=== PATIENT | female | born 1960 | race Caucasian/White ===

== ENCOUNTER 2017-01-31 14:08 | Inpatient (IN) ==
[2017-01-31] MEDS ORDERED: 0.9 % Sodium Chloride 1,000 ML IVC ONE (14:10)
[2017-01-31] MEDS ORDERED: Ondansetron 4 MG/2 ML VIAL IVP ONE ×2 (14:11→17:28)
--- NOTE | 2017-01-31 14:13 | Emergency Department Note ---
Disposition Clinical Impression: Acute kidney injury Nausea & vomiting Qualifiers: Vomiting type: unspecified Vomiting Intractability: unspecified Qualified Code( s): R11.2 - Nausea with vomiting, unspecified Disposition: Admitted As Inpatient Condition: Fair Time of Disposition: 15:38 General Adult HPI - General Stated complaint: abd pain, nv Time Seen by Provider: 01/31/17 14:09 Source: patient, EMS Mode of arrival: EMS Limitations: no limitations Nursing Notes Reviewed: Yes Vital Signs Reviewed: Yes - History of Present Illness HPI Narrative: 56-year-old who states she's had nausea vomiting for about 2 weeks. Developed some diarrhea today and this morning she suffered a syncopal episode when she got up. States she hasn't felt well for several days. 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 Associated symptoms: Reports: nausea/vomiting, weakness (Generalized) Treatments Prior to Arrival: none - Related Data Home Medications Medication Instructions Recorded Confirmed Atorvastatin [Lipitor] 40 mg PO HS 01/31/17 01/31/17 Clopidogrel [Plavix] 75 mg PO DAILY 01/31/17 01/31/17 Gabapentin [Neurontin] 300 mg PO TID 01/31/17 01/31/17 Insulin ASPART [Novolog Flexpen] 5 unit SQ TIDWM 01/31/17 01/31/17 Insulin Glargine,Hum.rec.anlog 15 unit SQ 01/31/17 01/31/17 [Lantus Solostar] Omeprazole [PriLOSEC] 20 mg PO DAILY 01/31/17 01/31/17 metFORMIN [Glucophage] 1,000 mg PO BID 01/31/17 01/31/17 Previous Rx's Medication Instructions Recorded Lisinopril [Zestril] 20 mg PO DAILY #30 tablet 08/19/16 Allergies Allergy/AdvReac Type Severity Reaction Status Date / Time No Known Allergies Allergy Verified 08/17/16 21:12 All systems ED: reviewed and negative except as stated. Constitutional: Denies: fever, chills, weakness, weight change Eyes: Denies: eye pain, eye discharge, vision change ENT ED: Denies: ear pain, throat pain, dental pain, hearing loss, epistaxis, congestion, dysphagia Cardiovascular: Reports: syncope. Denies: chest pain, palpitations, dyspnea on exertion, edema Respiratory: Denies: cough, dyspnea, wheezes, hemoptysis, stridor Gastrointestinal: Reports: nausea, vomiting, diarrhea. Denies: abdominal pain, constipation, hematemesis, melena, hematochezia Genitourinary: Denies: dysuria, frequency, hematuria, discharge Musculoskeletal: Denies: back pain, neck pain, arthralgia, myalgia Integumentary: Denies: rash, abrasion, lesions Neurological: Denies: headache, weakness, numbness, paresthesias, confusion, abnormal gait, vertigo Psychiatric: Denies: anxiety, depression, suicidal thoughts, homicidal thoughts , auditory hallucinations, visual hallucinations Endocrine: Denies: fatigue Hematological/Lymphatic: Denies: easy bleeding, easy bruising Allergic/Immunologic: Denies: facial swelling, urticaria Past Medical History - Past Medical History Medical history: Reports: hyperlipidemia, hypertension, other Surgical history: Reports: other Psychiatric history: Reports: anxiety, depression - Social History Smoking Status: Current every day smoker Smokeless Tobacco Status: No Alcohol use: Reports: none Drug use: Reports: none Physical Exam - General Limitations: no limitations General appearance: alert, in no apparent distress - Head Head exam: atraumatic, normocephalic, normal inspection - Eye Eye exam: Present: normal appearance, PERRL, EOMI - Expanded Eye Exam Pupils: Left: reactive - ENT ENT exam: normal exam, normal oropharynx, mucous membranes moist - Expanded ENT Exam External ear exam: Present: normal external inspection Mouth exam: Present: normal external inspection Teeth exam: Present: normal inspection Throat exam: Present: normal inspection - Neck Neck exam: Present: normal inspection, full ROM, trachea midline - Chest Chest inspection: Present: normal inspection, symmetric chest wall rise - Respiratory Respiratory exam: Present: normal lung sounds bilaterally - Cardiovascular Cardiovascular exam: Present: regular rate, normal rhythm, normal heart sounds - Abdominal Exam Abdominal exam: Present: soft, Non-Tender. Absent: tenderness, distention, guarding, rebound, rigidity - Extremities Exam Extremities exam: Present: normal inspection, full ROM. Absent: tenderness, pedal edema - Expanded Upper Extremity Exam Shoulder exam: Present: normal inspection, full ROM Arm exam: Present: normal inspection, full ROM Elbow exam: Present: normal inspection, full ROM Forearm/Wrist exam: Present: normal inspection, full ROM Hand exam: Present: normal inspection, full ROM Vascular exam: Normal: capillary refill, radial pulse - Expanded Lower Extremity Exam Hip/Pelvis exam: Present: normal inspection, full ROM Upper leg exam: Present: normal inspection, full ROM Knee exam: Present: normal inspection, full ROM Lower leg exam: Present: normal inspection, full ROM Ankle exam: Present: normal inspection, full ROM Foot/toe exam: Present: normal inspection, full ROM Neurovascular/Tendon exam: Absent: motor deficit, sensory deficit, tendon deficit - Back Exam Back exam: Present: normal inspection, full ROM. Absent: tenderness - Neurological Exam Neurological exam: Present: alert, oriented X3 - Expanded Neurological Exam Patient oriented to: Present: person, place, time Coma Scale Eye Opening: Spontaneous Coma Scale Motor Response: Obeys Commands Coma Scale Verbal Response: Oriented Coma Scale Total: 15 - Psychiatric Psychiatric exam: Present: normal affect, normal mood - Skin Skin exam: Present: warm, dry, intact, normal color Course - Reevaluation(s) Reevaluation #1: Patient with nausea vomiting and acute kidney injury we'll admit for hydration. Time: 15:58 - Consultations Consultation #1: Discussed with Shari Byers nurse practitioner who accepts the patient. Time: 15:57 Vital Signs Temperature 98.1 F 01/31/17 14:09 Pulse Rate 91 01/31/17 14:09 Respiratory Rate 18 01/31/17 14:09 Blood Pressure 117/81 01/31/17 14:09 O2 Sat by Pulse Oximetry 98 01/31/17 14:09 Temperature 98.1 F 01/31/17 14:09 Pulse Rate 85 01/31/17 15:33 Respiratory Rate 18 01/31/17 15:33 Blood Pressure 145/70 01/31/17 15:33 O2 Sat by Pulse Oximetry 99 01/31/17 15:33 Medical Decision Making - Lab Data Lab results reviewed: Yes I reviewed the patient's lab results. Result diagrams: 01/31/17 14:28 01/31/17 14:28 Lab Results 01/31/17 01/31/17 01/31/17 Range/Units 14:28 14:28 14:28 WBC 11.3 H (4.3-11.1) K/mcL RBC 5.78 H (3.82-4.97) M/mcL Hgb 16.0 H (11.5-15.4) g/dL Hct 48.5 H (35.3-44.9) % MCV 83.9 (83.0-100.0) fL MCH 27.7 L (28.0-33.3) pg MCHC 33.0 (31.6-35.5) g/dL RDW 12.8 (11.5-14.5) % Plt Count 275 (140-400) K/mcL MPV 10.3 (9.4-12.4) fL Seg Neutrophils % 44.0 % Band Neutrophils % 36.0 H (0-4) % Lymphocytes % 12.0 % Monocytes % 8.0 % Neutrophils # 9.0 H (1.6-8.9) K/mcL Lymphocytes # 1.4 (0.6-4.6) K/mcL Monocytes # 0.9 (0.0-1.3) K/mcL Platelet Estimate Normal (Normal) PT 13.5 H (9.4-12.1) Seconds INR 1.2 APTT 25.9 L (26.0-36.0) Seconds Sodium 136 (136-145) mEq/L Potassium 4.9 H (3.5-4.5) mEq/L Chloride 103 (98-109) mEq/L Carbon Dioxide 21 (19-29) mEq/L BUN 40 H (7-20) mg/dL Creatinine 2.04 H (0.57-1.11) mg/dL Est GFR ( Amer) 31 L (> 60) Est GFR (Non-Af Amer) 25 L (> 60) BUN/Creatinine Ratio 20 (6-26) Glucose 257 H (70-99) mg/dL Calculated Osmolality 301 H (280-300) Calcium 9.2 (8.6-10.8) mg/dL Troponin I (0-0.03) ng/mL 01/31/17 Range/Units 14:28 WBC (4.3-11.1) K/mcL RBC (3.82-4.97) M/mcL Hgb (11.5-15.4) g/dL Hct (35.3-44.9) % MCV (83.0-100.0) fL MCH (28.0-33.3) pg MCHC (31.6-35.5) g/dL RDW (11.5-14.5) % Plt Count (140-400) K/mcL MPV (9.4-12.4) fL Seg Neutrophils % % Band Neutrophils % (0-4) % Lymphocytes % % Monocytes % % Neutrophils # (1.6-8.9) K/mcL Lymphocytes # (0.6-4.6) K/mcL Monocytes # (0.0-1.3) K/mcL Platelet Estimate (Normal) PT (9.4-12.1) Seconds INR APTT (26.0-36.0) Seconds Sodium (136-145) mEq/L Potassium (3.5-4.5) mEq/L Chloride (98-109) mEq/L Carbon Dioxide (19-29) mEq/L BUN (7-20) mg/dL Creatinine (0.57-1.11) mg/dL Est GFR ( Amer) (> 60) Est GFR (Non-Af Amer) (> 60) BUN/Creatinine Ratio (6-26) Glucose (70-99) mg/dL Calculated Osmolality (280-300) Calcium (8.6-10.8) mg/dL Troponin I 0.00 (0-0.03) ng/mL - Radiology Data Radiology results reviewed: Yes I reviewed the patient's radiology results. Chest X-Ray 01/31/17 14:10 IMPRESSION: No acute cardiopulmonary process. D/ / 01/31/2017 14:36:04 Murphy Cr MD / Mariela Pelayo Interpreting Provider: Murphy Cr MD Head CT 01/31/17 14:10 IMPRESSION: 1. No acute intracranial abnormality. D/ / Santos Kohli MD / Santos Kohli MD Interpreting Provider: Santos Kohli MD - EKG Data EKG #1 EKG attestation: Yes I reviewed and interpreted this EKG. EKG shows normal: sinus rhythm Rate: normal Rhythm: NSR Interpretation: no acute changes
[2017-01-31 14:37] LABS: Hematocrit 48.5 % (35.3-44.9); Mean Corpuscular Hemoglobin 27.7 pg (28.0-33.3); Mean Corpuscular Volume 83.9 fL (83.0-100.0); Mean Platelet Volume 10.3 fL (9.4-12.4); Platelet Count 275 K/mcL (140-400); Red Blood Count 5.78 M/mcL (3.82-4.97); Red Cell Distribution Width 12.8 % (11.5-14.5)
[2017-01-31 14:49] LABS: INR 1.2; Prothrombin Time 13.5 Seconds (9.4-12.1)
[2017-01-31 14:51] LABS: Activated Partial Thrombo Time 25.9 Seconds (26.0-36.0)
[2017-01-31 15:00] LABS: Calcium 9.2 mg/dL (8.6-10.8); Potassium 4.9 mEq/L (3.5-4.5)
[2017-01-31] MEDS ORDERED: *HR* HYDROmorphone (PF) 1 MG/ML SYRINGE IVP ONE ×2 (15:24→18:32)
[2017-01-31 15:53] LABS: Lymphocytes # 1.4 K/mcL (0.6-4.6); Monocytes # 0.9 K/mcL (0.0-1.3)
[2017-01-31 15:54] LABS: Platelet Estimate Normal (Normal)
[2017-01-31] MEDS ORDERED: Naloxone 0.4 MG/ML INJ IVP PRN ×2 (17:41→20:58)
[2017-01-31] MEDS ORDERED: *HR* Dextrose 50 % in Water (Syg) 50 ML SYRINGE IVP PRN (17:55)
[2017-01-31] MEDS ORDERED: D5% in Water 1,000 ML IVC PRN (17:55)
[2017-01-31] MEDS ORDERED: Dextrose Gel 15 GM PO PRN ×2 (17:55)
--- NOTE | 2017-01-31 18:10 | Internal Med History&Physical ---
<MissaelJuan Martínez - Last Filed: 01/31/17 19:40> Date of Encounter: 01/31/17 Time of Encounter: 17:00 Assessment and Plan (1) Intractable cyclical vomiting with nausea Current visit: Yes Status: Acute Assess: Ms. Suero presents with chief complaint of intractable nausea and vomiting. Patient states that she has not felt well for three weeks and has been experiencing nausea, vomiting, and diarrhea on and off for the past three weeks but it has become much worse in the past week. She reports feeling progressively ill and weaker for the past several days. Ms. Suero reports that she got up at approximately 3-4 a.m. this morning to use the restroom and blacked out and fell in the bathroom. She states that her abdominal pain is low and located above the suprapubic region. She states that she is experiencing urinary urgency and frequency and feels as though she cannot empty her bladder. Patient's WBCs currently 11.3 on initial blood draw. Plan: IV fluids 0.9 NS at 100 mL/HR Check magnesium STAT NPO diet with ice chips as tolerated IV Zofran ordered IV phenergan ordered Monitor I&O Monitor daily weight Blood cultures ordered Urine cultures ordered Lactic acid ordered Abdominal/Pelvis CT ordered w/o contrast IV ceftriaxone 1,000 mg daily ordered for infection coverage Follow-up labs ordered Falls precautions/[id number] only Monitor patient and vital signs (2) Acute kidney injury Current visit: Yes Status: Acute Assess: Patient presents with acute kidney injury most likely related to current dehydration status related to nausea, vomiting, diarrhea over the past 3 weeks. Plan: Monitor creatinine and BUN Judicious use of IV fluids Urine culture ordered Ceftriaxone ordered for infection coverage Monitor I&O (3) Dehydration Current visit: Yes Status: Acute Assess: Patient presents with dehydration related to continued nausea, vomiting, diarrhea which is taken place for the past 3 weeks. Plan: IV fluids 0.9 NS at 100 mL/HR ordered Follow-up labs ordered Monitor patient's electrolyte status Monitor I&O (4) Diarrhea in adult patient Current visit: No Status: Acute Assess: Patient presents with continued diarrhea related to current status of abdominal pain, nausea, vomiting, and leukocytosis. Plan: NPO diet with ice chips as tolerated ordered Monitor I&O Fecal occult guaic ordered C. diff ordered based on patient's report of diarrhea for the past three weeks (5) Leukocytosis Current visit: Yes Status: Acute Assess: Patient presents with increased white blood count of 11.3 on initial lab draw and ED. Patient reports symptoms of UTI with urinary urgency, frequency, feeling of being unable to empty bladder completely, and abdominal pain located in suprapubic area. Patient also presents with intractable nausea and vomiting. Plan: Urine culture ordered Blood cultures ordered IV ceftriaxone ordered 1,000 mg daily for infection coverage Follow-up labs ordered Qualifiers: Leukocytosis type: unspecified Qualified Code(s): D72.829 - Elevated white blood cell count, unspecified (6) Diabetes Current visit: Yes Status: Chronic Assess: Patient presents with history of chronic diabetes. Blood glucose on initial lab drawn ED was 257 mg/dL. 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 Plan: Heparin contraindicated due to recent stroke history and syncope/fall today SCDs ordered for bilateral lower extremities Internal Medicine - H&P: HPI Chief complaint: Intractable nausea and vomiting Admitted From: Emergency Dept Plans for Post Hospital Care: Home History of present illness: Ms. Suero is a 56 year old female who presents from the ED with chief complaint of intractable nausea and vomiting. Patient states that she has not felt well for three weeks and has been experiencing nausea, vomiting, and diarrhea on and off for the past three weeks but it has become much worse in the past week. She reports feeling progressively ill and weaker for the past several days. Ms. Suero reports that she got up at approximately 3-4 a.m. this morning to use the restroom and blacked out and fell in the bathroom. She states that her abdominal pain is low and located above the suprapubic region. She states that she is experiencing urinary urgency and frequency and feels as though she cannot empty her bladder. She also reports that similar symptoms occurred in July 2016 when she experienced a stroke. She states she remains off-balance due to the stroke. Ms. Suero also states that she was recently diagnosed with a hole in her heart at [facility] early this month. Medical records will be requisitioned. Patient to be admitted as inpatient status due to leukocytosis, high risk for CVA, intractable nausea and vomiting, and syncopal episodes. Patient to be placed on IV fluids for dehydration and IV ceftriaxone for infection coverage. Orders to be placed for blood cultures, urine cultures, CT of the abdomen and pelvis w/o contrast, and NPO diet with ice chips as tolerated. Follow up labs ordered and patient to be monitored closely. Will consider repeat MRI of the brain if syncope/dizziness does not resolve with other treatments. Patient is falls precautions and up-with -assist only due to syncope. Past Med Surg Social Fam HX - Past Medical History Medical history: CVA, diabetes, hyperlipidemia, hypertension, other (Diagnosed with hole in the heart by [facility] in January 2017 - records ordered) Psychiatric history: no psych history - Past Surgical History Surgical History: hysterectomy, other (Part of colon removed due to diverticulosis. Colostomy reversed.) - Social History Smoking Status: Current every day smoker Packs per day: 1 PPD Smokeless Tobacco Status: No Alcohol use: none Drug use: none Occupational status: unemployed Current living situation: Home, With Family Activity Level: Independent ambulation Recent Out of Country Travel Within the Last 8 Weeks: No Exposure or Possible Exposure to Illness During Travel: No - Family History Mother Race: Family Member Ethnicity: Non- Living Status: Still Living Hx Family Endocrine Disorder: Yes (DM) Hx Family Neurologic Disorders: Yes (Alzheimer's disease) Father Race: Family Member Ethnicity: Non- Living Status: Age at : 42 Cause of : [place] Hx Family Cardiac Disorders: Yes ([place]) Brother Race: Family Member Ethnicity: Non- Living Status: Age at : 32 Cause of : [place] Hx Family Cardiac Disorders: Yes ([place]) Sister Race: Family Member Ethnicity: Non- Living Status: Still Living Hx Family Medical Disorders: No Internal Medicine - H&P: Meds Lisinopril [Zestril] 20 mg PO DAILY #30 tablet 08/19/16 [Rx] Atorvastatin [Lipitor] 40 mg PO HS 01/31/17 [History] Clopidogrel [Plavix] 75 mg PO DAILY 01/31/17 [History] Gabapentin [Neurontin] 300 mg PO TID 01/31/17 [History] Insulin ASPART [Novolog Flexpen] 5 unit SQ TIDWM 01/31/17 [History] Insulin Glargine,Hum.rec.anlog [Lantus Solostar] 15 unit SQ HS 01/31/17 [History ] Omeprazole [PriLOSEC] 20 mg PO DAILY 01/31/17 [History] metFORMIN [Glucophage] 1,000 mg PO BID 01/31/17 [History] Allergies No Known Allergies Allergy (Verified 08/17/16 21:12) All Systems PM: A 10-system review of systems was performed and is negative for pertinent findings except as documented above in the HPI. - Constitutional Constitutional: as per HPI, anorexia, falls, weakness, weight loss - EENT Eyes: no change in vision, no discharge, no pain, no photophobia Ears: no ear discharge, no ear pain, no tinnitus Nose, mouth and throat: no dysphagia, no nasal discharge, no neck pain, no sore throat - Breasts Breasts: as per HPI - Cardiovascular Cardiovascular ROS IM: no chest pain, no diaphoresis, no dyspnea, no lightheadedness, no palpitations, no syncope - Respiratory Respiratory: no cough, no dyspnea, no wheezing, no excessive phlegm production - Gastrointestinal Gastrointestinal: as per HPI, abdominal pain, diarrhea, nausea, vomiting - Genitourinary Genitourinary: as per HPI, difficulty urinating, urinary frequency, urinary urgency, no change in urinary stream, no dysuria, no flank pain, no hematuria Menstruation: as per HPI, post hysterectomy - Musculoskeletal Musculoskeletal ROS IM: no numbness, no tingling - Integumentary Integumentary IM: no rash, no unusual bruising - Neurological Neurological ROS: as per HPI, dizziness, weakness, no confusion, no convulsions , no focal weakness, no numbness, no tingling, no tremor(s) - Psychiatric Psychiatric: as per HPI - Endocrine Endocrine IM: as per HPI - Hematologic/Lymphatic Hematologic/Lymphatic: no easy bruising - Allergic/Immunologic Allergic/Immunologic: as per HPI - Constitutional Vitals: Temp Pulse Resp BP Pulse Ox 98.1 F 81 18 101/61 94 01/31/17 14:09 01/31/17 16:53 01/31/17 16:53 01/31/17 16:53 01/31/17 16:53 General appearance: Present: cooperative, A&O X 3, severe distress, answers questions appropriately - Head Head exam: Present: atraumatic, normocephalic - Eye Eye exam: Present: PERRL, conjuntiva pink, sclera anicteric Pupils: Present: PERRL - ENT ENT exam: Present: normal exam, normal external ear exam - Neck Neck exam general surgery: Present: supple, trachea midline. Absent: lymphadenopathy - Respiratory Respiratory exam: Present: CTAB. Absent: accessory muscle use, rales, rhonchi, wheezes - Cardiovascular Cardiovascular exam: Present: RRR, +S1, +S2. Absent: diastolic murmur, gallop, rubs, systolic murmur - GI/Abdominal GI/Abdominal exam: Present: diminished bowel sounds, guarding, soft, tenderness - Rectal Rectal exam: Present: deferred - Additional comments: exam deferred. - Extremities Exam Extremities exam: Present: warm, radial pulses palpable and symetrical. Absent : calf tenderness, cyanotic, pedal edema - Back Exam Back exam: Present: normal inspection - Neurological Exam Neurological exam: Present: CN II-XII intact, oriented X3, no focal deficits. Absent: pronater drift, facial droop, speech deficit - Psychiatric Psychiatric exam: Present: anxious (Due to severe pain and nausea) - Skin Skin exam: Present: dry, intact Internal Med - H&P Results - Labs CBC & Chem 7: 01/31/17 14:28 01/31/17 14:28 - EKG Data EKG shows normal: sinus rhythm Rate: normal - EKG Data Prior EKG available for review: yes When compared to previous EKG: there is no significant change Interpretation IM: normal EKG EKG comments: 01/31/17 19:03 EKG dated 09/07/16 shows sinus rhythm within normal limits. EKG dated 01/31/17 shows sinus rhythm, normal ECG. - Diagnostic Studies Chest x-ray Additional comments: Impressions Chest X-Ray 01/31/17 14:10 IMPRESSION: No acute cardiopulmonary process. D/ / 01/31/2017 14:36:04 Murphy Cr MD / Mariela Pelayo Interpreting Provider: Murphy Cr MD CT scan - head Additional comments: Impressions Head CT 01/31/17 14:10 IMPRESSION: 1. No acute intracranial abnormality. D/ / Santos Kohli MD / Santos Kohli MD Interpreting Provider: Santos Kohli MD <Mari Zhang E - Last Filed: 02/01/17 07:51> Date of Encounter: 02/01/17 Internal Medicine - H&P: HPI History of present illness: Ms. Suero is a 56 year old female All Systems PM: A 10-system review of systems was performed and is negative for pertinent findings except as documented above in the HPI. - Constitutional Vitals: Temp Pulse Resp BP Pulse Ox 97.8 F 69 14 119/73 97 02/01/17 03:25 02/01/17 03:25 02/01/17 03:25 02/01/17 03:25 02/01/17 03:25 Internal Med - H&P Results - Labs CBC & Chem 7: 02/01/17 03:50 02/01/17 03:50 Labs: Short CBC 02/01/17 Range/Units 03:50 WBC 9.2 (4.3-11.1) K/mcL Hgb 14.2 D (11.5-15.4) g/dL Hct 43.3 (35.3-44.9) % Plt Count 265 (140-400) K/mcL Neutrophils # 5.4 (1.6-8.9) K/mcL BMP 02/01/17 03:50 Sodium 138 Potassium 4.0 Chloride 108 Carbon Dioxide 22 BUN 30 H D Creatinine 0.95 D Glucose 100 H Calcium 8.4 L Liver Function 02/01/17 Range/Units 03:50 Total Bilirubin 0.2 (0.2-1.2) mg/dL AST 7 (5-34) Units/L ALT < 6 (0-55) Units/L Alkaline Phosphatase 82 (38-126) Units/L Albumin 3.0 L (3.5-5.0) g/dL Urine 01/31/17 Range/Units 23:20 Urine Color Yellow (Yellow) Urine Clarity Cloudy A (Clear) Urine pH 5.5 (5.0-8.0) pH Units Ur Specific Holley 1.023 (1.010-1.025) Urine Protein Trace (Neg-Trace) mg/dL Urine Glucose (UA) Normal (Normal) mg/dL - Impressions ITS Impressions Abdomen/Pelvis CT 01/31/17 18:26 IMPRESSION: 1. Circumferential wall thickening of the distal ileum with adjacent stranding compatible with enteritis. Infectious and inflammatory etiologies are in the differential. 2. No evidence of acute appendicitis. 3. Status post hysterectomy. D/ / Dmitri Campoverde MD / Dmitri Campoverde MD Interpreting Provider: Dmitri Campoverde MD - Attending Attestation This is a late entry for a patient I examined and reviewed laboratory, imaging and all diagnostic data on 01/31/17. My medical decision-making was reviewed with Juan Canas - BUILDING CONSTRUCTION IRONWORKER. I agreed with the documented findings, disposition and treatment plan as described above. History and exam by me shows: patient with nausea, vomiting, suprapubic pain, frequency and dysuria since the morning. She reports an episode of nausea and vomiting in July but left AMA and a few weeks later she had an outpatient brain MRI showing subacute stroke in the left cerebellar infarction with associated petechial hemorrhage. She reports this episode of nausea and vomiting is different but she is concerned that she might be having another stroke. CT head was negative. gait not asssessed due to severe nausea and vomiting. she denies any focal deficit. Her symptoms are concerning for UTI, will start IV Ceftriaxone, check UA/UCx, CT abdomen/pelvis, lipase, amylase and LFTs.
[2017-01-31] MEDS ORDERED: *HR* HYDROmorphone (PF) 1 MG/ML SYRINGE ONE (18:40)
[2017-01-31 18:52] LABS: Magnesium 1.5 mg/dL (1.6-2.6)
[2017-01-31 18:53] LABS: Hemoglobin A1C 7.6 %
[2017-01-31] MEDS ORDERED: Ketorolac 30 MG/ML VIAL IVP PRN (20:58)
[2017-01-31] MEDS: *HR* HYDROmorphone (PF) 1 MG/ML SYRINGE IVP PRN (21:00)
[2017-01-31] MEDS: 0.9 % Sodium Chloride 1,000 ML IVC SCH (21:05)
[2017-01-31] MEDS: *HR* Promethazine 25 MG/ML VIAL IVP PRN (21:09)
[2017-01-31] MEDS: Insulin DETEMIR 100 UNIT/ML X5UNITS SQ SCH (21:15)
[2017-01-31] MEDS: Insulin LISPRO 300 UNITS/3 ML VIAL SQ SCH (21:16)
[2017-01-31] MEDS ORDERED: *HR* Heparin 5,000 UNIT/ML VIAL SQ SCH (22:00)
[2017-01-31] MEDS ORDERED: Magnesium Sulfate 1 GM in D5% in Water 100 ML IVPB ONE (22:11)
[2017-01-31 23:25] LABS: Bilirubin,Urine Negative (Negative); Blood,Urine Negative (Negative); Clarity,Urine Cloudy (Clear); Color,Urine Yellow (Yellow); Glucose,Urine (UA) Normal (Normal); Ketones,Urine Negative (Negative); Leukocyte Esterase,Urine Small (Negative); Nitrite,Urine Negative (Negative); PH,Urine 5.5 pH Units (5.0-8.0); Protein,Urine Trace mg/dL (Neg-Trace); Specific Gravity,Urine 1.023 (1.010-1.025); Urobilinogen,Urine Normal (Normal)
[2017-01-31 23:27] LABS: Bacteria,Urine Moderate per hpf (None-Few); RBC,Urine 15-30 per hpf (0-3); Squamous Epithelial Cell,Urine Many per lpf (None-Few)
[2017-01-31 23:43] LABS: Hyaline Casts,Urine Few per lpf (None-Few)
[2017-02-01] MEDS: *HR* Promethazine 25 MG/ML VIAL IVP PRN ×6 (01:00→22:52)
[2017-02-01] MEDS: *HR* HYDROmorphone (PF) 1 MG/ML SYRINGE IVP PRN ×6 (01:02→22:49)
[2017-02-01] MEDS: MetroNIDAZOLE 500 MG/100 ML 500 MG/100 ML BAG IVPB SCH ×2 (01:43→09:42)
[2017-02-01 05:00] LABS: Basophils % 0.3 %; Eosinophils # 0.6 K/mcL (0.0-0.6); Eosinophils % 6.9 %; Hematocrit 43.3 % (35.3-44.9); Immature Granulocytes % 0.5 % (0-4); Lymphocytes % 21.5 %; Mean Corpuscular HGB Conc 32.8 g/dL (31.6-35.5); Mean Corpuscular Hemoglobin 28.1 pg (28.0-33.3); Mean Corpuscular Volume 85.6 fL (83.0-100.0); Mean Platelet Volume 10.4 fL (9.4-12.4); Monocytes # 1.1 K/mcL (0.0-1.3); Monocytes % 12.3 %; Neutrophils # 5.4 K/mcL (1.6-8.9); Platelet Count 265 K/mcL (140-400); Red Blood Count 5.06 M/mcL (3.82-4.97); Segmented Neutrophils % 58.5 %
[2017-02-01 05:09] LABS: Hemoglobin 14.2 g/dL (11.5-15.4)
[2017-02-01 05:17] LABS: Albumin/Globulin Ratio 0.9 (1.1-2.2); Alkaline Phosphatase 82 Units/L (38-126); Aspartate Amino Transferase 7 Units/L (5-34); BUN/Creatinine Ratio 32 (6-26); Bilirubin,Total 0.2 mg/dL (0.2-1.2); Blood Urea Nitrogen 30 mg/dL (7-20); Calcium 8.4 mg/dL (8.6-10.8); Carbon Dioxide 22 mEq/L (19-29); Chloride 108 mEq/L (98-109); Cholesterol 138 mg/dL (< 200); Globulin 3.2 g/dL (2.4-3.5); Glucose 100 mg/dL (70-99); HDL Cholesterol 23 mg/dL (40-59); LDL Cholesterol,Calculated 83 mg/dL (0-99); Magnesium 1.9 mg/dL (1.6-2.6); Osmolality,Calculated 292 (280-300); Phosphorous 2.6 mg/dL (2.3-4.7); Sodium 138 mEq/L (136-145); Total Protein 6.2 g/dL (6.0-8.3); Triglycerides 162 mg/dL (< 150); eGFR For African Americans > 60 (> 60); eGFR For Non-African Americans > 60 (> 60)
[2017-02-01 05:21] LABS: Alanine Aminotransferase < 6 Units/L (0-55)
[2017-02-01 05:29] LABS: Reactive Lymphocytes Present (Not Present)
[2017-02-01 05:30] LABS: Platelet Estimate Normal (Normal)
[2017-02-01] MEDS: 0.9 % Sodium Chloride 1,000 ML IVC SCH ×2 (06:34→17:09)
[2017-02-01] MEDS ORDERED: Insulin LISPRO 300 UNITS/3 ML VIAL SQ SCH (08:00)
[2017-02-01] MEDS: Insulin LISPRO 300 UNITS/3 ML VIAL SQ SCH ×4 (08:44→21:45)
--- NOTE | 2017-02-01 09:22 | Electrocardiograph Report ---
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
[2017-02-01] MEDS: Pantoprazole 40 MG VIAL IVP SCH (09:42)
--- NOTE | 2017-02-01 10:21 | Internal Med Progress Note ---
<Maryjo Pope - Last Filed: 02/01/17 14:54> Date of Encounter: 02/01/17 Time of Encounter: 09:00 - Assessment and plan (1) Clostridium difficile enterocolitis Current Visit: Yes Status: Acute Assessment and plan: Patient presented with signs and symptoms of enterocolitis: Nausea, vomiting, abdominal pain, explosive watery diarrhea for over 3 weeks. Patient subsequently developed dehydration due to volume loss from vomiting and diarrhea. CT scan of the abdomen and pelvis demonstrated circumferential wall thickening of the distal ileum that correlated to clinical findings of enterocolitis. Abdomen/Pelvis CT 01/31/17 18:26 IMPRESSION: 1. Circumferential wall thickening of the distal ileum with adjacent stranding compatible with enteritis. Infectious and inflammatory etiologies are in the differential. 2. No evidence of acute appendicitis. 3. Status post hysterectomy. -Leukocytosis with left shift and bandemia: WBCs 11.3, bands 36.0, neutrophils 9.0, reactive lymphocytes. Resolved: WBCs 9.2, no bands, neutrophils 5.4. We will continue to monitor daily labs in association with clinical progress. -Stool occult blood was positive. This is likely related to Clostridium difficile enterocolitis and inflammatory bowel wall changes. We will follow hemoglobin and hematocrit -Stool Clostridium difficile toxin was positive. Patient has never had C. difficile in the past. Community-acquired Clostridium difficile. Patient has criteria for severe enterocolitis that includes: End organ damage: Elevated BUN and creatinine above patient's baseline; Serum creatinine greater than 1.5 Serum albumin below 3 g/Ruth Ann -Will treat severe enterocolitis with oral vancomycin starting dose 125 mg QID. Stop date for vancomycin 02/11/17 for a total of 10 days oral vancomycin therapy. We will monitor for patient's response if she fails oral vancomycin at low dose will consider increasing to 500 mg 4 times a day if indicated. May consider adding lactobacillus acidophilus daily for discharge medication upon completion of oral vancomycin therapy to replenish natural bowel blas in order aid in prevention of recurrence. If patient remains stable we will likely discharge tomorrow on oral vancomycin as above. -Dehydration: IV fluid resuscitation. Continue normal saline at 100 miles an hour. -Nausea and vomiting: Anti-emetics Zofran and Phenergan when necessary -Advance to liquid diet if patient tolerates well we will continue to advance diet tomorrow. -Supportive care and pain control Urine culture pending Blood cultures pending (2) Diabetes Current Visit: Yes Status: Chronic Assessment and plan: Patient has a long history of type 2 diabetes. Discontinue oral hypoglycemics Glucose checks per protocol Subcutaneous insulin: Insulin low-dose sliding scale Will advance to diabetic diet as patient tolerates Qualifiers: Diabetes mellitus type: type 2 Diabetes mellitus complication status: without complication Diabetes mellitus extermination supervisor insulin use: unspecified intermediate insulin use status Qualified Code(s): E11.9 - Type 2 diabetes mellitus without complications (3) Hypertension Current Visit: Yes Status: Chronic Assessment and plan: Patient is currently well controlled. Vitals stable. Hold oral antihypertensives. Qualifiers: Hypertension type: essential hypertension Qualified Code(s): I10 - Essential (primary) hypertension (4) Hyperlipemia, mixed Current Visit: Yes Status: Acute Assessment and plan: Continue Lipitor (5) DVT prophylaxis Current Visit: Yes Status: Acute Assessment and plan: EPCDs to bilateral lower extremities for DVT prophylaxis Heparin 5,000 units SQ twice daily for DVT prophylaxis - Subjective Interval history: Patient was seen and examined. Events overnight include persistent explosive diarrhea described as watery with mozzarella cheese specks in it. "Never had diarrhea quite like this ". Patient's nausea and vomiting have resolved however she continues to have diarrhea and diffuse abdominal pain more pronounced suprapubically and the right lower quadrant associated symptoms include urgency and frequency of urination. Patient denies sick contacts, recent antibiotic use or history of Clostridium difficile. Vitals stable. Afebrile. Will advance patient's diet to liquids and see how she tolerates. - Constitutional Vitals: Temp Pulse Resp BP Pulse Ox 97.8 F 72 13 136/77 95 02/01/17 08:23 02/01/17 08:23 02/01/17 08:23 02/01/17 08:23 02/01/17 08:23 General appearance: Present: cooperative, A&O X 3, severe distress, answers questions appropriately Exam: General: Cooperative, pleasant, mild distress, alert and oriented 3, answers questions appropriately, pungent fecal odor in the room HEENT: Normocephalic, atraumatic, neck supple, trachea midline, Conjunctiva pink , sclera anicteric, EOMI, PERRL, oral mucosa dry, no orophargeal erythema or exudates Respiratory: No accessory muscle usage, clear to auscultation bilaterally, no wheezes/rhonchi/rales appreciated Cardiovascular: Regular rate and rhythm, S1 and S2 present, no murmurs/rubs/ gallops/clicks appreciated GI/abdominal: Nondistended, diffusely tender on palpation specifically over her suprapubic and right lower quadrant, soft, normal bowel sounds, no peritoneal signs Extremities: No calf tenderness, noncyanotic, no pedal edema appreciated, warm, lower extremity pulses palpable and symmetrical Neurological: Alert and oriented 3, no facial droop, no focal deficits Skin: Dry, intact, normal color Internal Medicine: Result - Labs CBC & Chem 7: 02/01/17 03:50 02/01/17 03:50 Labs: Short CBC 02/01/17 Range/Units 03:50 WBC 9.2 (4.3-11.1) K/mcL Hgb 14.2 D (11.5-15.4) g/dL Hct 43.3 (35.3-44.9) % Plt Count 265 (140-400) K/mcL Neutrophils # 5.4 (1.6-8.9) K/mcL BMP 02/01/17 03:50 Sodium 138 Potassium 4.0 Chloride 108 Carbon Dioxide 22 BUN 30 H D Creatinine 0.95 D Glucose 100 H Calcium 8.4 L Liver Function 02/01/17 Range/Units 03:50 Total Bilirubin 0.2 (0.2-1.2) mg/dL AST 7 (5-34) Units/L ALT < 6 (0-55) Units/L Alkaline Phosphatase 82 (38-126) Units/L Albumin 3.0 L (3.5-5.0) g/dL Urine 01/31/17 Range/Units 23:20 Urine Color Yellow (Yellow) Urine Clarity Cloudy A (Clear) Urine pH 5.5 (5.0-8.0) pH Units Ur Specific [place] 1.023 (1.010-1.025) Urine Protein Trace (Neg-Trace) mg/dL Urine Glucose (UA) Normal (Normal) mg/dL - ABG Interpretation ABG results: PT/INR, D-dimer PT 13.5 Seconds (9.4-12.1) H 01/31/17 14:28 D-Dimer 1561 ng/mLFEU (0-500) H 01/31/17 18:21 - Impressions Impressions Abdomen/Pelvis CT 01/31/17 18:26 IMPRESSION: 1. Circumferential wall thickening of the distal ileum with adjacent stranding compatible with enteritis. Infectious and inflammatory etiologies are in the differential. 2. No evidence of acute appendicitis. 3. Status post hysterectomy. D/ / Dmitri Campoverde MD / Dmitri Campoverde MD Interpreting Provider: Dmitri Campoverde MD Consult Discharge Plan - Plan Additional Instructions: After you complete your full course of oral vancomycin you may begin taking lactobacillus daily. Referrals: Cecile Kim MD [Primary Care Provider] - <Sarthak Amaya - Last Filed: 02/01/17 16:07> Date of Encounter: 02/01/17 - Constitutional Vitals: Temp Pulse Resp BP Pulse Ox 97.8 F 73 18 112/72 96 02/01/17 15:33 02/01/17 15:33 02/01/17 15:33 02/01/17 15:33 02/01/17 15:33 Internal Medicine: Result - Labs CBC & Chem 7: 02/01/17 03:50 02/01/17 03:50 - ABG Interpretation ABG results: PT/INR, D-dimer PT 13.5 Seconds (9.4-12.1) H 01/31/17 14:28 D-Dimer 1561 ng/mLFEU (0-500) H 01/31/17 18:21 - Attending Attestation I examined this patient and my medical decision-making was reviewed with the STEAM AND GAS TURBINE ASSEMBLER/PA/Advanced Practice Nurse/Resident Physician. I agree with the documented findings, disposition and treatment plan as described except to the extent set forth below. Severe C diff collitis. Continue with alma adams, Agree with DR. Pope.
[2017-02-01] MEDS ORDERED: Vancomycin Oral Soln 250 MG/2.5 ML UDC PO SCH (13:00)
[2017-02-01] MEDS: Gabapentin 300 MG CAPSULE PO SCH ×2 (17:09→21:46)
[2017-02-01] MEDS: *HR* Heparin 5,000 UNIT/ML VIAL SQ SCH (17:10)
[2017-02-01] MEDS: Ondansetron 4 MG/2 ML VIAL IVP PRN (17:10)
[2017-02-01] MEDS: Insulin DETEMIR 100 UNIT/ML X5UNITS SQ SCH (21:45)
[2017-02-01] MEDS: Vancomycin Oral Soln 250 MG/2.5 ML UDC PO SCH (21:46)
[2017-02-02] MEDS: Ondansetron 4 MG/2 ML VIAL IVP PRN (02:32)
[2017-02-02] MEDS: *HR* HYDROmorphone (PF) 1 MG/ML SYRINGE IVP PRN ×4 (03:32→21:41)
[2017-02-02] MEDS: 0.9 % Sodium Chloride 1,000 ML IVC SCH ×2 (03:33→13:42)
[2017-02-02] MEDS: *HR* Heparin 5,000 UNIT/ML VIAL SQ SCH ×2 (06:44→18:43)
[2017-02-02] MEDS: Insulin LISPRO 300 UNITS/3 ML VIAL SQ SCH ×4 (07:27→21:43)
[2017-02-02] MEDS: Pantoprazole 40 MG VIAL IVP SCH (07:37)
[2017-02-02] MEDS: Gabapentin 300 MG CAPSULE PO SCH ×3 (07:37→21:43)
[2017-02-02] MEDS: *HR* Promethazine 25 MG/ML VIAL IVP PRN ×3 (07:38→21:41)
--- NOTE | 2017-02-02 10:55 | Internal Med Progress Note ---
<Maryjo Pope - Last Filed: 02/02/17 18:25> Date of Encounter: 02/02/17 Time of Encounter: 09:00 - Assessment and plan (1) Clostridium difficile enterocolitis Current Visit: Yes Status: Acute Assessment and plan: Patient presented with signs and symptoms of enterocolitis: Nausea, vomiting, abdominal pain, explosive watery diarrhea for over 3 weeks. Patient subsequently developed dehydration due to volume loss from vomiting and diarrhea. CT scan of the abdomen and pelvis demonstrated circumferential wall thickening of the distal ileum that correlated to clinical findings of enterocolitis. Abdomen/Pelvis CT 01/31/17 18:26 IMPRESSION: 1. Circumferential wall thickening of the distal ileum with adjacent stranding compatible with enteritis. Infectious and inflammatory etiologies are in the differential. 2. No evidence of acute appendicitis. 3. Status post hysterectomy. -Leukocytosis with left shift and bandemia: WBCs 11.3, bands 36.0, neutrophils 9.0, reactive lymphocytes. Resolved: WBCs 9.2, no bands, neutrophils 5.4. We will continue to monitor daily labs in association with clinical progress. -Stool occult blood was positive. This is likely related to Clostridium difficile enterocolitis and inflammatory bowel wall changes. We will follow hemoglobin and hematocrit -Stool Clostridium difficile toxin was positive. Patient has never had C. difficile in the past. Community-acquired Clostridium difficile. Patient has criteria for severe enterocolitis that includes: End organ damage: Elevated BUN and creatinine above patient's baseline; Serum creatinine greater than 1.5 Serum albumin below 3 g/Ruth Ann -Will treat severe enterocolitis with oral vancomycin starting dose 125 mg QID. Stop date for vancomycin 02/11/17 for a total of 10 days oral vancomycin therapy. We will monitor for patient's response if she fails oral vancomycin at low dose will consider increasing to 500 mg 4 times a day if indicated. May consider adding lactobacillus acidophilus daily for discharge medication upon completion of oral vancomycin therapy to replenish natural bowel blas in order aid in prevention of recurrence. If patient remains stable we will likely discharge tomorrow on oral vancomycin as above. -Dehydration: IV fluid resuscitation. Continue normal saline at 100 miles an hour. -Nausea and vomiting: Anti-emetics Zofran and Phenergan when necessary -Advance to regular diet -Supportive care and pain control Urine culture pending negative preliminary Blood cultures pending negative preliminary If patient continues to tolerate diet well we will plan to discharge based on clinical response on home on oral vancomycin therapy with a stop date of . (2) Diabetes Current Visit: Yes Status: Chronic Assessment and plan: Patient has a long history of type 2 diabetes. Discontinue oral hypoglycemics Glucose checks per protocol Subcutaneous insulin: Insulin low-dose sliding scale Will advance to diabetic diet as patient tolerates Qualifiers: Diabetes mellitus type: type 2 Diabetes mellitus complication status: without complication Diabetes mellitus adjunct faculty for medical terminology insulin use: unspecified snf insulin use status Qualified Code(s): E11.9 - Type 2 diabetes mellitus without complications (3) Hypertension Current Visit: Yes Status: Chronic Assessment and plan: Patient is currently well controlled. Vitals stable. Hold oral antihypertensives. Qualifiers: Hypertension type: essential hypertension Qualified Code(s): I10 - Essential (primary) hypertension (4) Hyperlipemia, mixed Current Visit: Yes Status: Acute Assessment and plan: Continue Lipitor (5) DVT prophylaxis Current Visit: Yes Status: Acute Assessment and plan: EPCDs to bilateral lower extremities for DVT prophylaxis Heparin 5,000 units SQ twice daily for DVT prophylaxis - Subjective Interval history: Patient was seen and examined. No acute events overnight. Patient's volume of diarrhea has decreased although she still has minimal diffuse tenderness. Patient is excited to try regular food. Vitals stable. Afebrile. Will advance patient's diet to regular diet and see how she tolerates. - Constitutional Vitals: Temp Pulse Resp BP Pulse Ox 98.1 F 66 16 135/66 96 02/02/17 07:14 02/02/17 07:14 02/02/17 07:14 02/02/17 07:14 02/02/17 07:14 General appearance: Present: cooperative, A&O X 3, severe distress, answers questions appropriately Exam: General: Cooperative, pleasant, no acute distress, alert and oriented 3, answers questions appropriately HEENT: Normocephalic, atraumatic, neck supple, trachea midline, Conjunctiva pink , sclera anicteric, EOMI, PERRL, oral mucosa moist, no orophargeal erythema or exudates Respiratory: No accessory muscle usage, clear to auscultation bilaterally, no wheezes/rhonchi/rales appreciated Cardiovascular: Regular rate and rhythm, S1 and S2 present, no murmurs/rubs/ gallops/clicks appreciated GI/abdominal: Nondistended, diffuse tenderness, soft, normal bowel sounds, no peritoneal signs Extremities: No calf tenderness, noncyanotic, no pedal edema appreciated, warm, lower extremity pulses palpable and symmetrical Neurological: Alert and oriented 3, no facial droop, no focal deficits Skin: Dry, intact, normal color Internal Medicine: Result - Labs CBC & Chem 7: 02/02/17 11:22 02/02/17 11:22 - ABG Interpretation ABG results: PT/INR, D-dimer PT 13.5 Seconds (9.4-12.1) H 01/31/17 14:28 D-Dimer 1561 ng/mLFEU (0-500) H 01/31/17 18:21 - VTE Documentation of Mechanical Device: Intermittent pneumatic compression device Consult Discharge Plan - Plan Additional Instructions: After you complete your full course of oral vancomycin you may begin taking lactobacillus daily. Referrals: Cecile Kim MD [Primary Care Provider] - <Sarthak Amaya - Last Filed: 02/02/17 20:30> Date of Encounter: 02/02/17 - Constitutional Vitals: Temp Pulse Resp BP Pulse Ox 98.3 F 62 12 120/70 97 02/02/17 14:50 02/02/17 14:50 02/02/17 14:50 02/02/17 14:50 02/02/17 14:50 Internal Medicine: Result - Labs CBC & Chem 7: 02/02/17 11:22 02/02/17 11:22 Labs: Short CBC 02/02/17 Range/Units 11:22 WBC 8.4 (4.3-11.1) K/mcL Hgb 13.6 (11.5-15.4) g/dL Hct 40.8 (35.3-44.9) % Plt Count 237 (140-400) K/mcL Neutrophils # 4.4 (1.6-8.9) K/mcL BMP 02/02/17 11:22 Sodium 140 Potassium 4.3 Chloride 112 H Carbon Dioxide 21 BUN 13 D Creatinine 0.78 Glucose 100 H Calcium 8.6 - ABG Interpretation ABG results: PT/INR, D-dimer PT 13.5 Seconds (9.4-12.1) H 01/31/17 14:28 D-Dimer 1561 ng/mLFEU (0-500) H 01/31/17 18:21 - Attending Attestation I examined this patient and my medical decision-making was reviewed with the MILLING MACHINE TENDER/PA/Advanced Practice Nurse/Resident Physician. I agree with the documented findings, disposition and treatment plan as described except to the extent set forth below. Severe C diff colitis, geting better, co tinue po vncomycin, advance diet. Kalpesh [facility] DR. Martines. D/W patient.
[2017-02-02 11:29] LABS: Basophils # 0.1 K/mcL (0.0-0.2); Basophils % 0.6 %; Eosinophils # 0.9 K/mcL (0.0-0.6); Eosinophils % 10.3 %; Hematocrit 40.8 % (35.3-44.9); Hemoglobin 13.6 g/dL (11.5-15.4); Immature Granulocytes % 1.9 % (0-4); Lymphocytes # 2.1 K/mcL (0.6-4.6); Lymphocytes % 25.5 %; Mean Corpuscular HGB Conc 33.3 g/dL (31.6-35.5); Mean Corpuscular Hemoglobin 28.7 pg (28.0-33.3); Mean Corpuscular Volume 86.1 fL (83.0-100.0); Mean Platelet Volume 9.8 fL (9.4-12.4); Monocytes # 0.8 K/mcL (0.0-1.3); Monocytes % 9.9 %; Platelet Count 237 K/mcL (140-400); Red Blood Count 4.74 M/mcL (3.82-4.97); Red Cell Distribution Width 12.7 % (11.5-14.5); Segmented Neutrophils % 51.8 %
[2017-02-02 11:30] LABS: Neutrophils # 4.4 K/mcL (1.6-8.9)
[2017-02-02 11:41] LABS: BUN/Creatinine Ratio 17 (6-26); Calcium 8.6 mg/dL (8.6-10.8); Carbon Dioxide 21 mEq/L (19-29); Chloride 112 mEq/L (98-109); Glucose 100 mg/dL (70-99); Magnesium 1.8 mg/dL (1.6-2.6); Osmolality,Calculated 290 (280-300); Phosphorous 2.8 mg/dL (2.3-4.7); Potassium 4.3 mEq/L (3.5-4.5); Sodium 140 mEq/L (136-145); eGFR For African Americans > 60 (> 60); eGFR For Non-African Americans > 60 (> 60)
[2017-02-02 11:42] LABS: Blood Urea Nitrogen 13 mg/dL (7-20)
[2017-02-02 11:50] LABS: Platelet Estimate Normal (Normal); Reactive Lymphocytes Present (Not Present)
[2017-02-02] MEDS: Vancomycin Oral Soln 250 MG/2.5 ML UDC PO SCH ×4 (13:24→21:43)
[2017-02-02] MEDS: Insulin DETEMIR 100 UNIT/ML X5UNITS SQ SCH (21:42)
[2017-02-03] MEDS: *HR* HYDROmorphone (PF) 1 MG/ML SYRINGE IVP PRN ×5 (01:58→21:54)
[2017-02-03] MEDS: *HR* Promethazine 25 MG/ML VIAL IVP PRN ×5 (01:59→19:46)
[2017-02-03 03:04] LABS: Basophils # 0.1 K/mcL (0.0-0.2); Basophils % 0.6 %; Eosinophils % 10.2 %; Hematocrit 40.1 % (35.3-44.9); Hemoglobin 13.4 g/dL (11.5-15.4); Immature Granulocytes % 2.4 % (0-4); Lymphocytes # 2.6 K/mcL (0.6-4.6); Lymphocytes % 27.1 %; Mean Corpuscular HGB Conc 33.4 g/dL (31.6-35.5); Mean Corpuscular Hemoglobin 28.9 pg (28.0-33.3); Mean Corpuscular Volume 86.6 fL (83.0-100.0); Mean Platelet Volume 10.3 fL (9.4-12.4); Monocytes # 0.9 K/mcL (0.0-1.3); Monocytes % 9.7 %; Neutrophils # 4.7 K/mcL (1.6-8.9); Platelet Count 237 K/mcL (140-400); Red Blood Count 4.63 M/mcL (3.82-4.97); Red Cell Distribution Width 12.8 % (11.5-14.5)
[2017-02-03 03:15] LABS: BUN/Creatinine Ratio 13 (6-26); Blood Urea Nitrogen 11 mg/dL (7-20); Calcium 8.9 mg/dL (8.6-10.8); Carbon Dioxide 21 mEq/L (19-29); Chloride 111 mEq/L (98-109); Glucose 128 mg/dL (70-99); Osmolality,Calculated 295 (280-300); Potassium 3.7 mEq/L (3.5-4.5); Sodium 142 mEq/L (136-145); eGFR For African Americans > 60 (> 60); eGFR For Non-African Americans > 60 (> 60)
[2017-02-03] MEDS: *HR* Heparin 5,000 UNIT/ML VIAL SQ SCH ×2 (06:06→18:23)
[2017-02-03] MEDS: Insulin LISPRO 300 UNITS/3 ML VIAL SQ SCH ×4 (07:57→19:52)
[2017-02-03] MEDS: Pantoprazole 40 MG VIAL IVP SCH (09:05)
[2017-02-03] MEDS: Gabapentin 300 MG CAPSULE PO SCH ×3 (09:05→19:47)
[2017-02-03] MEDS: Vancomycin Oral Soln 250 MG/2.5 ML UDC PO SCH ×3 (09:06→19:47)
--- NOTE | 2017-02-03 09:27 | Internal Med Progress Note ---
<Maryjo Pope - Last Filed: 02/03/17 10:57> Date of Encounter: 02/03/17 Time of Encounter: 09:26 - Assessment and plan (1) Clostridium difficile enterocolitis Current Visit: Yes Status: Acute Assessment and plan: Patient presented with signs and symptoms of enterocolitis: Nausea, vomiting, abdominal pain, explosive watery diarrhea for over 3 weeks. Patient subsequently developed dehydration due to volume loss from vomiting and diarrhea. CT scan of the abdomen and pelvis demonstrated circumferential wall thickening of the distal ileum that correlated to clinical findings of enterocolitis. Abdomen/Pelvis CT 01/31/17 18:26 IMPRESSION: 1. Circumferential wall thickening of the distal ileum with adjacent stranding compatible with enteritis. Infectious and inflammatory etiologies are in the differential. 2. No evidence of acute appendicitis. 3. Status post hysterectomy. -Leukocytosis with left shift and bandemia: WBCs 11.3, bands 36.0, neutrophils 9.0, reactive lymphocytes. Resolved: WBCs 9.2, no bands, neutrophils 5.4. We will continue to monitor daily labs in association with clinical progress. -Stool occult blood was positive. This is likely related to Clostridium difficile enterocolitis and inflammatory bowel wall changes. We will follow hemoglobin and hematocrit -Stool Clostridium difficile toxin was positive. Patient has never had C. difficile in the past. Community-acquired Clostridium difficile. Patient has criteria for severe enterocolitis that includes: End organ damage: Elevated BUN and creatinine above patient's baseline; Serum creatinine greater than 1.5 Serum albumin below 3 g/Ruth Ann -Will treat severe enterocolitis with oral vancomycin starting dose 125 mg QID. Stop date for vancomycin 02/11/17 for a total of 10 days oral vancomycin therapy. We will monitor for patient's response if she fails oral vancomycin at low dose will consider increasing to 500 mg 4 times a day if indicated. May consider adding lactobacillus acidophilus daily for discharge medication upon completion of oral vancomycin therapy to replenish natural bowel blas in order aid in prevention of recurrence. If patient remains stable we will likely discharge on oral vancomycin as above. -Continue oral fluids -Nausea and vomiting: Anti-emetics Zofran and Phenergan when necessary -Continue regular diet -Supportive care and pain control: Percocet 5/325 every 6 hours added -Final urine cultures no pathogens isolated. Patient still having diarrhea and anal leakage will increase oral vancomycin to 250 mg 4 times a day and evaluate for clinical response. Blood cultures pending negative preliminary If patient continues to tolerate diet well we will plan to discharge based on clinical response on home on oral vancomycin therapy with a stop date of . (2) Diabetes Current Visit: Yes Status: Chronic Assessment and plan: Patient has a long history of type 2 diabetes. Discontinue oral hypoglycemics Glucose checks per protocol Subcutaneous insulin: Insulin low-dose sliding scale Will advance to diabetic diet as patient tolerates Qualifiers: Diabetes mellitus type: type 2 Diabetes mellitus complication status: without complication Diabetes mellitus [facility] insulin use: unspecified adjunct faculty for medical terminology insulin use status Qualified Code(s): E11.9 - Type 2 diabetes mellitus without complications (3) Hypertension Current Visit: Yes Status: Chronic Assessment and plan: Patient is currently well controlled. Vitals stable. Hold oral antihypertensives. Qualifiers: Hypertension type: essential hypertension Qualified Code(s): I10 - Essential (primary) hypertension (4) Hyperlipemia, mixed Current Visit: Yes Status: Acute Assessment and plan: Continue Lipitor (5) DVT prophylaxis Current Visit: Yes Status: Acute Assessment and plan: EPCDs to bilateral lower extremities for DVT prophylaxis Heparin 5,000 units SQ twice daily for DVT prophylaxis - Subjective Interval history: Patient was seen and examined. No acute events overnight. Patient tolerated regular diet without nausea or vomiting however she continues to have diarrhea and anal leakage. Patient's volume of diarrhea has decreased although she still has minimal diffuse tenderness. As patient is tolerating by mouth well will add analgesics orally given her continued abdominal discomfort. Vitals stable. Afebrile. - Constitutional Vitals: Temp Pulse Resp BP Pulse Ox 98.1 F 66 16 150/75 95 02/03/17 07:04 02/03/17 07:04 02/03/17 07:04 02/03/17 07:04 02/03/17 07:04 General appearance: Present: cooperative, A&O X 3, severe distress, answers questions appropriately Exam: General: Cooperative, pleasant, mild distress, alert and oriented 3, answers questions appropriately HEENT: Normocephalic, atraumatic, neck supple, trachea midline, Conjunctiva pink , sclera anicteric, EOMI, PERRL, oral mucosa moist, no orophargeal erythema or exudates Respiratory: No accessory muscle usage, clear to auscultation bilaterally, no wheezes/rhonchi/rales appreciated Cardiovascular: Regular rate and rhythm, S1 and S2 present, no murmurs/rubs/ gallops/clicks appreciated GI/abdominal: Nondistended, diffuse tenderness soft, normal bowel sounds, no peritoneal signs Extremities: No calf tenderness, noncyanotic, no pedal edema appreciated, warm, lower extremity pulses palpable and symmetrical Neurological: Alert and oriented 3, no facial droop, no focal deficits Skin: Dry, intact, normal color Internal Medicine: Result - Labs CBC & Chem 7: 02/03/17 02:22 02/03/17 02:22 Labs: Short CBC 02/02/17 02/03/17 Range/Units 11:22 02:22 WBC 8.4 9.5 (4.3-11.1) K/mcL Hgb 13.6 13.4 (11.5-15.4) g/dL Hct 40.8 40.1 (35.3-44.9) % Plt Count 237 237 (140-400) K/mcL Neutrophils # 4.4 4.7 (1.6-8.9) K/mcL BMP 02/02/17 02/03/17 11:22 02:22 Sodium 140 142 Potassium 4.3 3.7 Chloride 112 H 111 H Carbon Dioxide 21 21 BUN 13 D 11 Creatinine 0.78 0.88 Glucose 100 H 128 H Calcium 8.6 8.9 - ABG Interpretation ABG results: PT/INR, D-dimer PT 13.5 Seconds (9.4-12.1) H 01/31/17 14:28 D-Dimer 1561 ng/mLFEU (0-500) H 01/31/17 18:21 - VTE Documentation of Mechanical Device: Intermittent pneumatic compression device Consult Discharge Plan - Plan Additional Instructions: After you complete your full course of oral vancomycin you may begin taking lactobacillus daily. Referrals: Cecile Kim MD [Primary Care Provider] - <Sarthak Amaya - Last Filed: 02/03/17 15:21> Date of Encounter: 02/03/17 - Constitutional Vitals: Temp Pulse Resp BP Pulse Ox 98.4 F 66 17 129/53 95 02/03/17 11:56 02/03/17 11:56 02/03/17 11:56 02/03/17 11:56 02/03/17 11:56 Internal Medicine: Result - Labs CBC & Chem 7: 02/03/17 02:22 02/03/17 02:22 Labs: Short CBC 02/03/17 Range/Units 02:22 WBC 9.5 (4.3-11.1) K/mcL Hgb 13.4 (11.5-15.4) g/dL Hct 40.1 (35.3-44.9) % Plt Count 237 (140-400) K/mcL Neutrophils # 4.7 (1.6-8.9) K/mcL BMP 02/03/17 02:22 Sodium 142 Potassium 3.7 Chloride 111 H Carbon Dioxide 21 BUN 11 Creatinine 0.88 Glucose 128 H Calcium 8.9 - ABG Interpretation ABG results: PT/INR, D-dimer PT 13.5 Seconds (9.4-12.1) H 01/31/17 14:28 D-Dimer 1561 ng/mLFEU (0-500) H 01/31/17 18:21 - Attending Attestation I examined this patient and my medical decision-making was reviewed with the PROGRAM OR PROJECT ADMINISTRATOR/PA/Advanced Practice Nurse/Resident Physician. I agree with the documented findings, disposition and treatment plan as described except to the extent set forth below. Severe c diff colitis, increase dose of vanco to 500 mg po qid. Agree with Dr. Pope.
[2017-02-03] MEDS: *HR* OxyCODONE/APAP 5/325 TABLET PO PRN ×2 (12:41→19:47)
[2017-02-03] MEDS ORDERED: Vancomycin Oral Soln 250 MG/2.5 ML UDC PO SCH (13:00)
[2017-02-03] MEDS: Ondansetron 4 MG/2 ML VIAL IVP PRN (17:25)
[2017-02-03] MEDS: Insulin DETEMIR 100 UNIT/ML X5UNITS SQ SCH (19:47)
[2017-02-04] MEDS: *HR* Promethazine 25 MG/ML VIAL IVP PRN ×5 (02:04→22:01)
[2017-02-04] MEDS: *HR* HYDROmorphone (PF) 1 MG/ML SYRINGE IVP PRN ×6 (02:04→22:00)
[2017-02-04] MEDS: *HR* Heparin 5,000 UNIT/ML VIAL SQ SCH ×2 (06:31→18:06)
--- NOTE | 2017-02-04 08:35 | Internal Med Progress Note ---
Date of Encounter: 02/04/17 Time of Encounter: 08:33 - Assessment and plan (1) Clostridium difficile enterocolitis Current Visit: Yes Status: Acute Assessment and plan: Patient presented with signs and symptoms of enterocolitis: Nausea, vomiting, abdominal pain, explosive watery diarrhea for over 3 weeks. Patient subsequently developed dehydration due to volume loss from vomiting and diarrhea. CT scan of the abdomen and pelvis demonstrated circumferential wall thickening of the distal ileum that correlated to clinical findings of enterocolitis. Abdomen/Pelvis CT 01/31/17 18:26 IMPRESSION: 1. Circumferential wall thickening of the distal ileum with adjacent stranding compatible with enteritis. Infectious and inflammatory etiologies are in the differential. 2. No evidence of acute appendicitis. 3. Status post hysterectomy. -Leukocytosis with left shift and bandemia: WBCs 11.3, bands 36.0, neutrophils 9.0, reactive lymphocytes. Resolved, will continue to monitor labs tomorrow in association with clinical progress. -Stool occult blood was positive. This is likely related to Clostridium difficile enterocolitis and inflammatory bowel wall changes. We will follow hemoglobin and hematocrit -Stool Clostridium difficile toxin was positive. Patient has never had C. difficile in the past. Community-acquired Clostridium difficile. Patient has criteria for severe enterocolitis that includes: End organ damage: Elevated BUN and creatinine above patient's baseline; Serum creatinine greater than 1.5 Serum albumin below 3 g/Ruth Ann -Initially was on by mouth vancomycin 125 mg 4 times daily, however I decided to increase the dose to 500 mg 4 times daily due to lack of clinical response in the first 48 hours. -Encourage oral fluids, will resume some IV fluids and monitor kidney function test tomorrow in a.m. -Nausea and vomiting: Anti-emetics Zofran and Phenergan when necessary -Was nauseous last night and vomited, did not hve dinner due to this,will give liquid diet and advance as tolerated. -Supportive care and pain control: Percocet 5/325 every 6 hours added -Final urine cultures no pathogens isolated. D/W patient. (2) Acute kidney injury Current Visit: Yes Status: Acute Assessment and plan: Resolved, will recheck bmp tomorrow. (3) DVT prophylaxis Current Visit: Yes Status: Acute Assessment and plan: EPCDs to bilateral lower extremities for DVT prophylaxis Heparin 5,000 units SQ twice daily for DVT prophylaxis (4) Nausea & vomiting Current Visit: Yes Status: Acute Qualifiers: Vomiting type: unspecified Vomiting Intractability: unspecified Qualified Code(s): R11.2 - Nausea with vomiting, unspecified (5) Diabetes Current Visit: Yes Status: Chronic Assessment and plan: Patient has a long history of type 2 diabetes. 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 Vitals stable. Hold oral antihypertensives. Qualifiers: Hypertension type: essential hypertension Qualified Code(s): I10 - Essential (primary) hypertension - Subjective Interval history: patient seen and examined, was vomiting last night, did not have dinner, was nauseous, currently denies nausea but is complaining of abd pain. afebrile. - Constitutional Vitals: Temp Pulse Resp BP Pulse Ox 98.0 F 92 16 94/65 91 02/04/17 07:00 02/04/17 07:00 02/04/17 07:00 02/04/17 07:00 02/04/17 07:00 General appearance: Present: cooperative, A&O X 3, severe distress, answers questions appropriately - Head Head exam: Present: atraumatic, normocephalic - Eye Eye exam: Present: PERRL, conjuntiva pink, sclera anicteric Pupils: Present: PERRL - Neck Neck exam general surgery: Present: supple, trachea midline. Absent: lymphadenopathy - Respiratory Respiratory exam: Present: CTAB. Absent: accessory muscle use, rales, rhonchi, wheezes - Cardiovascular Cardiovascular exam: Present: RRR, +S1, +S2. Absent: diastolic murmur, gallop, rubs, systolic murmur - GI/Abdominal GI/Abdominal exam: Present: normal bowel sounds, soft, no peritoneal signs. Absent: distended, tenderness - Extremities Exam Extremities exam: Present: warm, radial pulses palpable and symetrical. Absent : calf tenderness, cyanotic, pedal edema - Neurological Exam Neurological exam: Present: CN II-XII intact, oriented X3, no focal deficits. Absent: pronater drift, facial droop, speech deficit - Skin Skin exam: Present: dry, intact Internal Medicine: Result - Labs CBC & Chem 7: 02/03/17 02:22 02/03/17 02:22 - ABG Interpretation ABG results: PT/INR, D-dimer PT 13.5 Seconds (9.4-12.1) H 01/31/17 14:28 D-Dimer 1561 ng/mLFEU (0-500) H 01/31/17 18:21 - VTE Documentation of Mechanical Device: Intermittent pneumatic compression device Consult Discharge Plan - Plan Additional Instructions: After you complete your full course of oral vancomycin you may begin taking lactobacillus daily. Referrals: Cecile Kim MD [Primary Care Provider] -
[2017-02-04] MEDS: 0.9 % Sodium Chloride 1,000 ML IVC SCH ×2 (08:52→21:01)
[2017-02-04] MEDS: Pantoprazole 40 MG VIAL IVP SCH (08:53)
[2017-02-04] MEDS: Vancomycin Oral Soln 250 MG/2.5 ML UDC PO SCH ×4 (08:53→21:03)
[2017-02-04] MEDS: Gabapentin 300 MG CAPSULE PO SCH ×3 (08:53→21:02)
[2017-02-04] MEDS: Ondansetron 4 MG/2 ML VIAL IVP PRN (08:59)
[2017-02-04] MEDS: *HR* OxyCODONE/APAP 5/325 TABLET PO PRN (09:00)
[2017-02-04] MEDS: Insulin LISPRO 300 UNITS/3 ML VIAL SQ SCH ×4 (09:03→21:03)
[2017-02-04] MEDS: Insulin DETEMIR 100 UNIT/ML X5UNITS SQ SCH (21:03)
[2017-02-05] MEDS: Ondansetron 4 MG/2 ML VIAL IVP PRN ×2 (01:56→15:12)
[2017-02-05] MEDS: *HR* HYDROmorphone (PF) 1 MG/ML SYRINGE IVP PRN ×6 (02:03→23:34)
[2017-02-05 04:35] LABS: Hematocrit 50.1 % (35.3-44.9); Mean Corpuscular HGB Conc 32.9 g/dL (31.6-35.5); Mean Corpuscular Hemoglobin 27.7 pg (28.0-33.3); Mean Corpuscular Volume 84.2 fL (83.0-100.0); Mean Platelet Volume 10.4 fL (9.4-12.4); Platelet Count 264 K/mcL (140-400); Red Blood Count 5.95 M/mcL (3.82-4.97); Red Cell Distribution Width 12.9 % (11.5-14.5)
[2017-02-05 04:38] LABS: Hemoglobin 16.5 g/dL (11.5-15.4)
[2017-02-05 04:47] LABS: Calcium 8.4 mg/dL (8.6-10.8)
[2017-02-05 04:55] LABS: Eosinophils # 1.9 K/mcL (0.0-0.6); Lymphocytes # 5.2 K/mcL (0.6-4.6); Monocytes # 1.5 K/mcL (0.0-1.3)
[2017-02-05 05:05] LABS: Platelet Estimate Normal (Normal)
[2017-02-05 05:06] LABS: Reactive Lymphocytes Present (Not Present)
[2017-02-05] MEDS: *HR* Promethazine 25 MG/ML VIAL IVP PRN (06:12)
[2017-02-05] MEDS: *HR* Heparin 5,000 UNIT/ML VIAL SQ SCH ×2 (06:12→16:57)
[2017-02-05] MEDS: Insulin LISPRO 300 UNITS/3 ML VIAL SQ SCH ×4 (09:30→21:39)
[2017-02-05] MEDS: Gabapentin 300 MG CAPSULE PO SCH ×3 (09:33→21:46)
[2017-02-05] MEDS: Pantoprazole 40 MG VIAL IVP SCH (09:34)
--- NOTE | 2017-02-05 10:34 | Internal Med Progress Note ---
<Maryjo Pope - Last Filed: 02/05/17 13:26> Date of Encounter: 02/05/17 Time of Encounter: 10:34 - Assessment and plan (1) Clostridium difficile enterocolitis Current Visit: Yes Status: Acute Assessment and plan: Patient presented with signs and symptoms of enterocolitis: Nausea, vomiting, abdominal pain, explosive watery diarrhea for over 3 weeks. Patient subsequently developed dehydration due to volume loss from vomiting and diarrhea. CT scan of the abdomen and pelvis demonstrated circumferential wall thickening of the distal ileum that correlated to clinical findings of enterocolitis. Abdomen/Pelvis CT 01/31/17 18:26 IMPRESSION: 1. Circumferential wall thickening of the distal ileum with adjacent stranding compatible with enteritis. Infectious and inflammatory etiologies are in the differential. 2. No evidence of acute appendicitis. 3. Status post hysterectomy. -Leukocytosis with left shift and bandemia: WBCs 11.3, bands 36.0, neutrophils 9.0, reactive lymphocytes. Resolved. We will continue to monitor labs tomorrow and to correlate with clinical progress. -Stool occult blood was positive. This is likely related to Clostridium difficile enterocolitis and inflammatory bowel wall changes. We will follow hemoglobin and hematocrit -Stool Clostridium difficile toxin was positive. Patient has never had C. difficile in the past. Community-acquired Clostridium difficile. Patient has criteria for severe enterocolitis that includes: End organ damage: Elevated BUN and creatinine above patient's baseline; Serum creatinine greater than 1.5 Serum albumin below 3 g/Ruth Ann -Initially was on by mouth vancomycin 125 mg 4 times daily. Dose was increased to 500 mg 4 times daily due to lack of clinical response in the first 48 hours. -Encourage oral fluids. Resume IV fluids and monitor kidney function test with repeat draw this afternoon and tomorrow in a.m. -Nausea and vomiting: Anti-emetics Zofran and Phenergan when necessary -Was nauseous last night and vomited, did not hve dinner due to this,will give liquid diet and advance as tolerated. -Supportive care and pain control: Percocet 5/325 every 6 hours added -Final urine cultures no pathogens isolated. -Flagyl was added to optimize medical therapy. 500 mg/mL IV piggyback every 8 hours. The assessment and plan as outlined above was discussed with the patient and/or family members who expressed understanding and agreement. All questions were answered. (2) Diabetes Current Visit: Yes Status: Chronic Assessment and plan: Patient has a long history of type 2 diabetes. Discontinue oral hypoglycemics Glucose checks per protocol Subcutaneous insulin: Insulin low-dose sliding scale Qualifiers: Diabetes mellitus type: type 2 Diabetes mellitus complication status: without complication Diabetes mellitus financial aid administrator insulin use: unspecified half-way insulin use status Qualified Code(s): E11.9 - Type 2 diabetes mellitus without complications (3) Hypertension Current Visit: Yes Status: Chronic Assessment and plan: Patient is currently well controlled. Vitals stable. Hold oral antihypertensives. Qualifiers: Hypertension type: essential hypertension Qualified Code(s): I10 - Essential (primary) hypertension (4) Hyperlipemia, mixed Current Visit: Yes Status: Acute Assessment and plan: Continue Lipitor (5) DVT prophylaxis Current Visit: Yes Status: Acute Assessment and plan: Heparin 5,000 units SQ twice daily for DVT prophylaxis - Subjective Interval history: Patient was seen and examined. No acute events overnight. Patient reports that she has had decreased appetite and decreased oral input over the past 3 days. She denies nausea or vomiting however she continues to have multiple episodes diarrhea and anal leakage throughout the day. Given that patient has had decreased oral intake will restart her on IV fluids as her labs also demonstrate volume contraction. Patient continues to have diffuse abdominal tenderness. She reports oral analgesics have been helpful. Patient admits that she has not been up to ambulate through the hallways. She reports that she will try to ambulate today. Vitals stable. Afebrile. - Constitutional Vitals: Temp Pulse Resp BP Pulse Ox 97.4 F L 87 17 113/68 96 02/05/17 07:26 02/05/17 07:26 02/05/17 07:26 02/05/17 07:26 02/05/17 07:26 General appearance: Present: cooperative, A&O X 3, severe distress, answers questions appropriately Exam: General: Cooperative, pleasant, mild distress, alert and oriented 3, answers questions appropriately HEENT: Normocephalic, atraumatic, neck supple, trachea midline, Conjunctiva pink , sclera anicteric, EOMI, PERRL, oral mucosa moist, no orophargeal erythema or exudates Respiratory: No accessory muscle usage, clear to auscultation bilaterally, no wheezes/rhonchi/rales appreciated Cardiovascular: Regular rate and rhythm, S1 and S2 present, no murmurs/rubs/ gallops/clicks appreciated GI/abdominal: Nondistended, diffuse tenderness soft, normal bowel sounds, no peritoneal signs Extremities: No calf tenderness, noncyanotic, no pedal edema appreciated, warm, lower extremity pulses palpable and symmetrical Neurological: Alert and oriented 3, no facial droop, no focal deficits Skin: Dry, intact, normal colo Internal Medicine: Result - Labs CBC & Chem 7: 02/05/17 03:58 02/05/17 03:58 Labs: Short CBC 02/05/17 Range/Units 03:58 WBC 18.6 H D (4.3-11.1) K/mcL Hgb 16.5 H D (11.5-15.4) g/dL Hct 50.1 H (35.3-44.9) % Plt Count 264 (140-400) K/mcL Neutrophils # 10.0 H (1.6-8.9) K/mcL BMP 02/05/17 03:58 Sodium 138 Potassium 4.0 Chloride 108 Carbon Dioxide 18 L BUN 18 Creatinine 1.34 H D Glucose 113 H Calcium 8.4 L - ABG Interpretation ABG results: PT/INR, D-dimer PT 13.5 Seconds (9.4-12.1) H 01/31/17 14:28 D-Dimer 1561 ng/mLFEU (0-500) H 01/31/17 18:21 - VTE Documentation of Mechanical Device: Intermittent pneumatic compression device Consult Discharge Plan - Plan Additional Instructions: After you complete your full course of oral vancomycin you may begin taking lactobacillus daily. Referrals: Cecile Kim MD [Primary Care Provider] - <Sarthak Amaya - Last Filed: 02/05/17 15:11> Date of Encounter: 02/05/17 - Assessment and plan (1) Clostridium difficile enterocolitis Current Visit: Yes Status: Acute (2) Acute kidney injury Current Visit: Yes Status: Acute (3) DVT prophylaxis Current Visit: Yes Status: Acute (4) Nausea & vomiting Current Visit: Yes Status: Acute Qualifiers: Vomiting type: unspecified Vomiting Intractability: unspecified Qualified Code(s): R11.2 - Nausea with vomiting, unspecified (5) Diabetes Current Visit: Yes Status: Chronic Qualifiers: Diabetes mellitus type: type 2 Diabetes mellitus complication status: without complication Diabetes mellitus half-way insulin use: unspecified financial aid administrator insulin use status Qualified Code(s): E11.9 - Type 2 diabetes mellitus without complications (6) Hypertension Current Visit: Yes Status: Chronic Qualifiers: Hypertension type: essential hypertension Qualified Code(s): I10 - Essential (primary) hypertension - Constitutional Vitals: Temp Pulse Resp BP Pulse Ox 97.5 F L 84 15 125/75 97 02/05/17 14:59 02/05/17 14:59 02/05/17 14:59 02/05/17 14:59 02/05/17 14:59 Internal Medicine: Result - Labs CBC & Chem 7: 02/05/17 03:58 02/05/17 03:58 Labs: Short CBC 02/05/17 Range/Units 03:58 WBC 18.6 H D (4.3-11.1) K/mcL Hgb 16.5 H D (11.5-15.4) g/dL Hct 50.1 H (35.3-44.9) % Plt Count 264 (140-400) K/mcL Neutrophils # 10.0 H (1.6-8.9) K/mcL BMP 02/05/17 03:58 Sodium 138 Potassium 4.0 Chloride 108 Carbon Dioxide 18 L BUN 18 Creatinine 1.34 H D Glucose 113 H Calcium 8.4 L - ABG Interpretation ABG results: PT/INR, D-dimer PT 13.5 Seconds (9.4-12.1) H 01/31/17 14:28 D-Dimer 1561 ng/mLFEU (0-500) H 01/31/17 18:21 - Attending Attestation I examined this patient and my medical decision-making was reviewed with the KNIFE SHARPENER/PA/Advanced Practice Nurse/Resident Physician. I agree with the documented findings, disposition and treatment plan as described except to the extent set forth below. Agree with resident, severe c diff colitis, worsening renal function and leukocytosis, add flagyl and continue with iv fluids.
[2017-02-05] MEDS: Vancomycin Oral Soln 250 MG/2.5 ML UDC PO SCH ×4 (10:45→21:52)
[2017-02-05] MEDS ORDERED: 0.9 % Sodium Chloride 1,000 ML IVC ONE (10:45)
[2017-02-05] MEDS: 0.9 % Sodium Chloride 1,000 ML IVC SCH ×3 (12:38→19:56)
[2017-02-05] MEDS: MetroNIDAZOLE 500 MG/100 ML 500 MG/100 ML BAG IVPB SCH ×2 (15:12→23:36)
[2017-02-05 16:28] LABS: Hematocrit 47.5 % (35.3-44.9); Hemoglobin 15.8 g/dL (11.5-15.4); Mean Corpuscular HGB Conc 33.3 g/dL (31.6-35.5); Mean Corpuscular Hemoglobin 28.3 pg (28.0-33.3); Mean Platelet Volume 9.6 fL (9.4-12.4); Platelet Count 258 K/mcL (140-400); Red Blood Count 5.59 M/mcL (3.82-4.97)
[2017-02-05 16:40] LABS: BUN/Creatinine Ratio 15 (6-26); Blood Urea Nitrogen 17 mg/dL (7-20); Calcium 8.4 mg/dL (8.6-10.8); Carbon Dioxide 21 mEq/L (19-29); Chloride 108 mEq/L (98-109); Glucose 187 mg/dL (70-99); Osmolality,Calculated 292 (280-300); Potassium 3.9 mEq/L (3.5-4.5); Sodium 138 mEq/L (136-145); eGFR For African Americans > 60 (> 60); eGFR For Non-African Americans 50 (> 60)
[2017-02-05 17:02] LABS: Eosinophils # 3.5 K/mcL (0.0-0.6); Lymphocytes # 4.8 K/mcL (0.6-4.6); Neutrophils # 13.5 K/mcL (1.6-8.9)
[2017-02-05 17:04] LABS: Platelet Estimate Normal (Normal)
[2017-02-05] MEDS: *HR* OxyCODONE/APAP 5/325 TABLET PO PRN (17:06)
[2017-02-05] MEDS: Insulin DETEMIR 100 UNIT/ML X5UNITS SQ SCH (21:46)
[2017-02-06] MEDS: 0.9 % Sodium Chloride 1,000 ML IVC SCH ×3 (02:13→19:21)
[2017-02-06] MEDS: *HR* HYDROmorphone (PF) 1 MG/ML SYRINGE IVP PRN ×2 (02:20→06:26)
[2017-02-06 04:28] LABS: Hematocrit 43.9 % (35.3-44.9); Hemoglobin 14.7 g/dL (11.5-15.4); Mean Corpuscular HGB Conc 33.5 g/dL (31.6-35.5); Mean Corpuscular Hemoglobin 28.2 pg (28.0-33.3); Mean Corpuscular Volume 84.3 fL (83.0-100.0); Mean Platelet Volume 9.7 fL (9.4-12.4); Platelet Count 226 K/mcL (140-400); Red Blood Count 5.21 M/mcL (3.82-4.97); Red Cell Distribution Width 12.9 % (11.5-14.5)
[2017-02-06 04:40] LABS: BUN/Creatinine Ratio 13 (6-26); Blood Urea Nitrogen 13 mg/dL (7-20); Calcium 8.2 mg/dL (8.6-10.8); Carbon Dioxide 23 mEq/L (19-29); Chloride 110 mEq/L (98-109); Glucose 96 mg/dL (70-99); Osmolality,Calculated 288 (280-300); Potassium 4.1 mEq/L (3.5-4.5); Sodium 139 mEq/L (136-145); eGFR For African Americans > 60 (> 60); eGFR For Non-African Americans 58 (> 60)
[2017-02-06] MEDS: *HR* OxyCODONE/APAP 5/325 TABLET PO PRN (04:42)
[2017-02-06 04:53] LABS: Platelet Estimate Normal (Normal)
[2017-02-06 04:55] LABS: Eosinophils # 1.9 K/mcL (0.0-0.6); Lymphocytes # 2.2 K/mcL (0.6-4.6); Monocytes # 0.3 K/mcL (0.0-1.3); Neutrophils # 11.5 K/mcL (1.6-8.9); Reactive Lymphocytes Present (Not Present)
[2017-02-06] MEDS: *HR* Heparin 5,000 UNIT/ML VIAL SQ SCH ×2 (06:26→15:58)
[2017-02-06] MEDS: Insulin LISPRO 300 UNITS/3 ML VIAL SQ SCH ×4 (07:40→20:35)
[2017-02-06] MEDS: Ondansetron 4 MG/2 ML VIAL IVP PRN (08:01)
[2017-02-06] MEDS: Pantoprazole 40 MG VIAL IVP SCH (08:01)
[2017-02-06] MEDS: MetroNIDAZOLE 500 MG/100 ML 500 MG/100 ML BAG IVPB SCH (08:02)
[2017-02-06] MEDS: Gabapentin 300 MG CAPSULE PO SCH ×3 (08:02→20:38)
[2017-02-06] MEDS: Vancomycin Oral Soln 250 MG/2.5 ML UDC PO SCH (08:06)
[2017-02-06] MEDS ORDERED: Acetaminophen 325 MG TABLET PO PRN (09:50)
--- NOTE | 2017-02-06 09:55 | Internal Med Progress Note ---
Date of Encounter: 02/06/17 Time of Encounter: 09:30 - Assessment and plan (1) Clostridium difficile enterocolitis Current Visit: Yes Status: Acute Assessment and plan: severe c diff colitis ( ROMEO, albumin <3). Patient presented with signs and symptoms of enterocolitis: Nausea, vomiting, abdominal pain, explosive watery diarrhea for over 3 weeks. C diff test was positive. CT scan of the abdomen and pelvis demonstrated circumferential wall thickening of the distal ileum that correlated to clinical findings of enterocolitis. WBCs 11.3, bands 36.0. Stool occult blood was positive. started on oral vancomycin 250 mg qid but increased to 500 mg qid and then flagyl added due to lack of response. Today, patient reports no change in her bowel movements, multiple loose stools all day. Stop oral vancomycin and Flagyl. start fidaxomicin, culturelle and cholestyramine. iv fluids. advance diet to diabetic. (2) Acute kidney injury Current Visit: Yes Status: Acute Assessment and plan: Resolved. pre-renal from GI losses (diarrhea). continue iv fluids. good oral intake. advance diet. (3) Diabetes Current Visit: Yes Status: Chronic Assessment and plan: ISS. diabetic diet. glucose level is adequate. stop long-acting insulin. 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 continue iv fluids. (5) Hypertension Current Visit: Yes Status: Chronic Assessment and plan: Patient is currently well controlled. Vitals stable. Hold oral antihypertensives. Qualifiers: Hypertension type: essential hypertension Qualified Code(s): I10 - Essential (primary) hypertension - Subjective Interval history: constant episodes of watery loose stools since admission, unable to quantify. no nausea. no vomiting. mild abdominal pain. - Constitutional Vitals: Temp Pulse Resp BP Pulse Ox 97.8 F 70 16 120/73 96 02/06/17 07:34 02/06/17 07:34 02/06/17 07:34 02/06/17 07:34 02/06/17 08:00 General appearance: Present: cooperative, A&O X 3, no acute distress, severe distress, answers questions appropriately - Eye Eye exam: Present: PERRL, sclera anicteric - Neck Neck exam general surgery: Present: supple, trachea midline. Absent: lymphadenopathy - Respiratory Respiratory exam: Present: CTAB - Cardiovascular Cardiovascular exam: Present: RRR - GI/Abdominal GI/Abdominal exam: Present: normal bowel sounds, soft. Absent: distended, tenderness - Extremities Exam Extremities exam: Absent: pedal edema - Back Exam Back exam: Absent: CVA tenderness (R) - Neurological Exam Neurological exam: Present: alert, normal gait, oriented X3, no focal deficits, strengths equal and symetr throughout. Absent: facial droop, speech deficit - Skin Skin exam: Absent: rash Internal Medicine: Result - Labs CBC & Chem 7: 02/06/17 04:15 02/06/17 04:15 Labs: Short CBC 02/05/17 02/06/17 Range/Units 16:22 04:15 WBC 21.8 H 15.9 H (4.3-11.1) K/mcL Hgb 15.8 H 14.7 (11.5-15.4) g/dL Hct 47.5 H 43.9 (35.3-44.9) % Plt Count 258 226 (140-400) K/mcL Neutrophils # 13.5 H 11.5 H (1.6-8.9) K/mcL BMP 02/05/17 02/06/17 16:22 04:15 Sodium 138 139 Potassium 3.9 4.1 Chloride 108 110 H Carbon Dioxide 21 23 BUN 17 13 Creatinine 1.14 H 1.00 Glucose 187 H 96 Calcium 8.4 L 8.2 L - ABG Interpretation ABG results: PT/INR, D-dimer PT 13.5 Seconds (9.4-12.1) H 01/31/17 14:28 D-Dimer 1561 ng/mLFEU (0-500) H 01/31/17 18:21 - VTE Documentation of Mechanical Device: Intermittent pneumatic compression device Consult Discharge Plan - Plan Additional Instructions: After you complete your full course of oral vancomycin you may begin taking lactobacillus daily. Referrals: Cecile Kim MD [Primary Care Provider] -
[2017-02-06] MEDS: Lactobacillus 1 EACH CAP.SPRINK PO SCH ×2 (11:23→20:38)
[2017-02-06] MEDS: Cholestyramine 4 GM POWD.PACK PO SCH ×3 (11:23→20:39)
[2017-02-06] MEDS: *HR* HYDROcodone/Acet 7.5/325 mg TABLET PO PRN ×2 (11:23→18:21)
[2017-02-06] MEDS: Fidaxomicin 200 MG TABLET PO SCH ×2 (11:23→20:38)
[2017-02-06 14:45] LABS: Adenovirus F 40/41 PCR Not detected (Not detect); Astrovirus PCR Not detected (Not detect); C.difficile Toxin A/B by PCR Not detected (Not detect); Campylobacter by PCR Not detected (Not detect); Cryptosporidium by PCR Not detected (Not detect); Cyclospora cayetanensis PCR Not detected (Not detect); E. coli O157 by PCR Not detected (Not detect); Entamoeba histolytica PCR Not detected (Not detect); Enteroaggregative E.coli(EAEC) Not detected (Not detect); Enteropathogenic E.coli(EPEC) Not detected (Not detect); Enterotoxigenic E.coli (ETEC) Not detected (Not detect); Giardia lamblia PCR Not detected (Not detect); Plesiomonas shigelloides PCR Not detected (Not detect); Salmonella PCR Not detected (Not detect); Shig/EnteroinvasiveE coli EIEC Not detected (Not detect); Shigalike tox-prod E coli STEC Not detected (Not detect); Vibrio PCR Not detected (Not detect); Vibrio cholerae PCR Not detected (Not detect); Yersinia enterocolitica PCR Not detected (Not detect)
[2017-02-06 14:46] LABS: Norovirus GI/GII PCR Not detected (Not detect); Rotavirus A PCR Not detected (Not detect); Sapovirus PCR Not detected (Not detect)
[2017-02-06] MEDS: *HR* Promethazine 25 MG/ML VIAL IVP PRN (18:23)
[2017-02-06] MEDS: OxyCODONE CONC 5 MG/0.25 ML ORAL.SYG PO PRN (20:37)
[2017-02-07] MEDS: *HR* HYDROcodone/Acet 7.5/325 mg TABLET PO PRN ×2 (00:40→08:13)
[2017-02-07] MEDS: *HR* Promethazine 25 MG/ML VIAL IVP PRN (01:51)
[2017-02-07] MEDS: OxyCODONE CONC 5 MG/0.25 ML ORAL.SYG PO PRN (02:59)
[2017-02-07] MEDS: *HR* Heparin 5,000 UNIT/ML VIAL SQ SCH (06:02)
[2017-02-07 07:23] LABS: Hematocrit 41.9 % (35.3-44.9); Hemoglobin 14.3 g/dL (11.5-15.4); Mean Corpuscular HGB Conc 34.1 g/dL (31.6-35.5); Mean Corpuscular Hemoglobin 28.3 pg (28.0-33.3); Mean Platelet Volume 10.7 fL (9.4-12.4); Platelet Count 184 K/mcL (140-400); Red Blood Count 5.05 M/mcL (3.82-4.97); Red Cell Distribution Width 12.8 % (11.5-14.5)
[2017-02-07] MEDS ORDERED: *HR* OxyCODONE Immed Rel 5 MG TABLET PO PRN (07:44)
[2017-02-07 07:48] LABS: BUN/Creatinine Ratio 12 (6-26); Blood Urea Nitrogen 9 mg/dL (7-20); Carbon Dioxide 18 mEq/L (19-29); Chloride 112 mEq/L (98-109); Glucose 111 mg/dL (70-99); Osmolality,Calculated 287 (280-300); Phosphorous 3.1 mg/dL (2.3-4.7); Potassium 3.9 mEq/L (3.5-4.5); Sodium 139 mEq/L (136-145); eGFR For African Americans > 60 (> 60); eGFR For Non-African Americans > 60 (> 60)
[2017-02-07] MEDS: Ondansetron 4 MG/2 ML VIAL IVP PRN (08:08)
[2017-02-07] MEDS: Cholestyramine 4 GM POWD.PACK PO SCH (08:12)
[2017-02-07] MEDS: Insulin LISPRO 300 UNITS/3 ML VIAL SQ SCH ×2 (08:12→12:00)
[2017-02-07] MEDS: Lactobacillus 1 EACH CAP.SPRINK PO SCH (08:13)
[2017-02-07] MEDS: Pantoprazole 40 MG VIAL IVP SCH (08:13)
[2017-02-07] MEDS: Gabapentin 300 MG CAPSULE PO SCH (08:13)
[2017-02-07] MEDS: Fidaxomicin 200 MG TABLET PO SCH (08:13)
--- NOTE | 2017-02-07 08:22 | Internal Med Progress Note ---
<Maryjo Pope - Last Filed: 02/07/17 10:39> Date of Encounter: 02/07/17 Time of Encounter: 08:22 - Assessment and plan (1) Clostridium difficile enterocolitis Status: Acute Assessment and plan: Patient presented with signs and symptoms of enterocolitis: Nausea, vomiting, abdominal pain, explosive watery diarrhea for over 3 weeks. Patient subsequently developed dehydration due to volume loss from vomiting and diarrhea. CT scan of the abdomen and pelvis demonstrated circumferential wall thickening of the distal ileum that correlated to clinical findings of enterocolitis. Patient has failed vancomycin orally and Flagyl as she did not demonstrate clinical response. Will avoid antimotility agents as this is contraindicated in C. difficile enterocolitis. -Nausea and vomiting: Anti-emetics Zofran and Phenergan when necessary -Was nauseous last night and vomited, did not hve dinner due to this,will give liquid diet and advance as tolerated. -Supportive care and pain control: Percocet 5/325 every 6 hours added - Continue Fidaxomicin and lactobacillus - Repeat labs and correlate to clinical progress. If patient demonstrates response will likely discharge home in the next 24-48 hours. The assessment and plan as outlined above was discussed with the patient and/or family members who expressed understanding and agreement. All questions were answered. (2) Hypomagnesemia Status: Acute Assessment and plan: Related to volume loss from diarrhea. Will replete magnesium today. (3) Diabetes Status: Chronic Assessment and plan: Patient has a long history of type 2 diabetes. Her home regimen includes insulin aspart 5 units subcutaneous 3 times a day WM, Lantus 15 units subcutaneous daily at bedtime, metformin 1000 mg by mouth twice a day. 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 Vitals stable. Hold oral antihypertensives. Qualifiers: Hypertension type: essential hypertension Qualified Code(s): I10 - Essential (primary) hypertension (5) Hyperlipemia, mixed Status: Acute Assessment and plan: Continue Lipitor (6) DVT prophylaxis Status: Acute Assessment and plan: Heparin 5,000 units SQ twice daily for DVT prophylaxis - Subjective Interval history: Patient was seen and examined. No acute events overnight. Patient reports that although she is hungry she is unable to read the menu to order because she does not have her glasses. Over the past 2 days patient has been frustrated with this and has subsequently not ordered anything. Today, sat and reviewed menu with patient to ensure that she would have something that she desired to eat for lunch and dinner today and breakfast tomorrow. Patient denies nausea or vomiting. She does continue to have anal leakage although yesterday and today she has not had a bowel movement of any substantial volume. Patient reports that yesterday and today her abdominal pain has moved from her lower quadrants to her upper quadrants and she feels bloated. She reports oral analgesics have been helpful, however yesterday she had an incident where she requested pain medicine and did not receive it for over 2 hours. Patient states that she has not been up to ambulate through the hallways as she has not been allowed to. Patient would like to be discharged home as soon as possible. Vitals stable. Afebrile. - Constitutional Vitals: Temp Pulse Resp BP Pulse Ox 98.0 F 70 16 118/69 95 02/07/17 07:38 02/07/17 07:38 02/07/17 07:38 02/07/17 07:38 02/07/17 07:38 General appearance: Present: cooperative, A&O X 3, no acute distress, severe distress, answers questions appropriately Exam: General: Cooperative, pleasant, mild distress, alert and oriented 3, answers questions appropriately, today she reports that she has been unable to read the manual because she does not have her glasses. HEENT: Normocephalic, atraumatic, neck supple, trachea midline, Conjunctiva pink , sclera anicteric, EOMI, PERRL, oral mucosa moist, no orophargeal erythema or exudates Respiratory: No accessory muscle usage, clear to auscultation bilaterally, no wheezes/rhonchi/rales appreciated Cardiovascular: Regular rate and rhythm, S1 and S2 present, no murmurs/rubs/ gallops/clicks appreciated GI/abdominal: Nondistended, diffuse upper quadrant tenderness, soft, normal bowel sounds, no peritoneal signs Extremities: No calf tenderness, noncyanotic, no pedal edema appreciated, warm, lower extremity pulses palpable and symmetrical Neurological: Alert and oriented 3, no facial droop, no focal deficits Skin: Dry, intact, normal color Internal Medicine: Result - Labs CBC & Chem 7: 02/07/17 06:42 02/07/17 06:42 Labs: Short CBC 02/07/17 Range/Units 06:42 WBC 12.7 H (4.3-11.1) K/mcL Hgb 14.3 (11.5-15.4) g/dL Hct 41.9 (35.3-44.9) % Plt Count 184 (140-400) K/mcL BMP 02/07/17 06:42 Sodium 139 Potassium 3.9 Chloride 112 H Carbon Dioxide 18 L BUN 9 Creatinine 0.73 Glucose 111 H Calcium 8.0 L - ABG Interpretation ABG results: PT/INR, D-dimer PT 13.5 Seconds (9.4-12.1) H 01/31/17 14:28 D-Dimer 1561 ng/mLFEU (0-500) H 01/31/17 18:21 - VTE Documentation of Mechanical Device: Intermittent pneumatic compression device Consult Discharge Plan - Plan Additional Instructions: Please check your blood pressure twice daily and check your blood blood sugars before meals and at bedtime. write down the numbers and bring records to doc appointment. drink plenty of fluids > 2liters a day. follow up with your doctor. Referrals: Cecile Kim MD [Primary Care Provider] - Prescriptions: HYDROcodone/Acet 7.5/325 mg [[place] 7.5-325 mg] 1 tab PO Q6HR PRN #5 tablet PRN Reason: moderate to severe pain Ondansetron [Zofran ODT] 8 mg SL Q8HR PRN #30 tab.rapdis PRN Reason: Nausea And Vomiting Fidaxomicin [Dificid] 200 mg PO BID #17 tablet Lactobacillus [Culturelle] 1 each PO BID #30 cap.sprink Magnesium Oxide [Mag-Ox] 400 mg PO BID #30 tablet <Mari Zhang - Last Filed: 02/07/17 16:32> Date of Encounter: 02/07/17 - Assessment and plan (1) Clostridium difficile enterocolitis Status: Acute (2) Acute kidney injury Status: Resolved (3) Diabetes Status: Chronic Qualifiers: Diabetes mellitus type: type 2 Diabetes mellitus complication status: without complication 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 care 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 insulin use status Qualified Code(s): E11.9 - Type 2 diabetes mellitus without complications (4) Dehydration Status: Resolved (5) Hypertension Status: Chronic Qualifiers: Hypertension type: essential hypertension Qualified Code(s): I10 - Essential (primary) hypertension - Constitutional Vitals: Temp Pulse Resp BP Pulse Ox 97.9 F 70 16 121/70 95 02/07/17 10:54 02/07/17 10:54 02/07/17 10:54 02/07/17 10:54 02/07/17 10:54 Internal Medicine: Result - Labs CBC & Chem 7: 02/07/17 06:42 02/07/17 06:42 Labs: Short CBC 02/07/17 Range/Units 06:42 WBC 12.7 H (4.3-11.1) K/mcL Hgb 14.3 (11.5-15.4) g/dL Hct 41.9 (35.3-44.9) % Plt Count 184 (140-400) K/mcL Neutrophils # 6.9 (1.6-8.9) K/mcL BMP 02/07/17 06:42 Sodium 139 Potassium 3.9 Chloride 112 H Carbon Dioxide 18 L BUN 9 Creatinine 0.73 Glucose 111 H Calcium 8.0 L - ABG Interpretation ABG results: PT/INR, D-dimer PT 13.5 Seconds (9.4-12.1) H 01/31/17 14:28 D-Dimer 1561 ng/mLFEU (0-500) H 01/31/17 18:21 - Attending Attestation I examined this patient and reviewed laboratory, imaging and all diagnostic data. My medical decision-making was reviewed with Dr Maryjo Pope- Resident Physician. I agree with the documented findings, disposition and treatment plan as described above.
[2017-02-07] MEDS ORDERED: Ringers Solution, Lactated 1,000 ML IVC SCH (08:30)
[2017-02-07 08:34] LABS: Eosinophils # 2.3 K/mcL (0.0-0.6); Monocytes # 1.5 K/mcL (0.0-1.3); Neutrophils # 6.9 K/mcL (1.6-8.9)
[2017-02-07 08:35] LABS: Platelet Estimate Normal (Normal)
[2017-02-07] MEDS ORDERED: Magnesium Sulfate 2 GM in D5% in Water 100 ML IVPB STA (10:22)
[2017-02-07 10:55] VITALS: BP 121/70
--- NOTE | 2017-02-07 14:38 | Discharge Summary ---
Date of Encounter: 02/07/17 Time of Encounter: 14:30 - Discharge Diagnosis (1) Clostridium difficile enterocolitis Priority: Primary Status: Acute (2) Acute kidney injury Priority: Primary Status: Resolved (3) Diabetes Priority: Primary Status: Chronic Qualifiers: Diabetes mellitus type: type 2 Diabetes mellitus complication status: without complication Diabetes mellitus mcc insulin use: unspecified mcc insulin use status Qualified Code(s): E11.9 - Type 2 diabetes mellitus without complications (4) Dehydration Priority: Primary Status: Resolved (5) Hypertension Priority: Primary Status: Chronic Qualifiers: Hypertension type: essential hypertension Qualified Code(s): I10 - Essential (primary) hypertension - Discharge Medications Prescriptions: HYDROcodone/Acet 7.5/325 mg [[place] 7.5-325 mg] 1 tab PO Q6HR PRN #5 tablet PRN Reason: moderate to severe pain Ondansetron [Zofran ODT] 8 mg SL Q8HR PRN #30 tab.rapdis PRN Reason: Nausea And Vomiting Fidaxomicin [Dificid] 200 mg PO BID #17 tablet Lactobacillus [Culturelle] 1 each PO BID #30 cap.sprink Magnesium Oxide [Mag-Ox] 400 mg PO BID #30 tablet Home Medications: Atorvastatin [Lipitor] 40 mg PO HS 01/31/17 [History] Clopidogrel [Plavix] 75 mg PO DAILY 01/31/17 [History] Gabapentin [Neurontin] 300 mg PO TID 01/31/17 [History] Insulin ASPART [Novolog Flexpen] 5 unit SQ TIDWM 01/31/17 [History] Omeprazole [PriLOSEC] 20 mg PO DAILY 01/31/17 [History] metFORMIN [Glucophage] 1,000 mg PO BID 01/31/17 [History] Fidaxomicin [Dificid] 200 mg PO BID #17 tablet 02/07/17 [Rx] HYDROcodone/Acet 7.5/325 mg [[place] 7.5-325 mg] 1 tab PO Q6HR PRN #5 tablet 02/07 [Rx] Lactobacillus [Culturelle] 1 each PO BID #30 cap.sprink 02/07/17 [Rx] Magnesium Oxide [Mag-Ox] 400 mg PO BID #30 tablet 02/07/17 [Rx] Ondansetron [Zofran ODT] 8 mg SL Q8HR PRN #30 tab.rapdis 02/07/17 [Rx] Allergies/Adverse Reactions: Allergies No Known Allergies Allergy (Verified 08/17/16 21:12) Date of admission: 02/01/17 14:19 Primary care physician: Cecile Kim MD - Patient Status Disposition: Left Against Medical Advice Condition: Good Functional capacity at discharge: independent ambulation Overall status at discharge: patient is not back to baseline - Discharge Instructions Follow Up With: Cecile Kim MD [Primary Care Provider] - Forms: ED Satisfaction Letter Additional Instructions: Please check your blood pressure twice daily and check your blood blood sugars before meals and at bedtime. write down the numbers and bring records to doc appointment. drink plenty of fluids > 2liters a day. follow up with your doctor. - Diet and Activity Activity: resume usual activities as tolerated Diet: diabetic diet Hospital course: Ms. Suero is a 56 year old female with past medical history of htn and dm who presents with Nausea, vomiting, abdominal pain, explosive watery diarrhea for over 3 weeks. C diff test was positive. CT scan of the abdomen and pelvis demonstrated circumferential wall thickening of the distal ileum that correlated to clinical findings of enterocolitis. WBCs 11.3, bands 36.0. Stool occult blood was positive. She was diagnosed of severe c diff colitis ( ROMEO, albumin <3) and started on oral vancomycin 250 mg qid but then it was increased to 500 mg qid and then flagyl was added due to lack of response. Due to poor response, she was switched to fidaxomicin with clinical response.She was given IV fluid resuscitation with resolution of her ROMEO. Her magnesium dropped to 1.0 and she was started on IV magnesium but she only received 2 gm because she wished to leave [place]. her home dose levemir was held due to poor oral intake and low normal glucose levels. her home dose of lisinopril was also held due to ROMEO. PLAN: she was encouraged to drink plenty of fluids, to take her antibiotics and to follow up with her doctor soon to have a repeat blood tests. she was prescribed fidaxomicin, culturelle and magnesium. - Time Spent with Patient Total time spent providing and/or coordinating discharge services: - Constitutional Vitals: Temp Pulse Resp BP Pulse Ox 97.9 F 70 16 121/70 95 06/14/17 10:54 02/07/17 10:54 02/07/17 10:54 02/07/17 10:54 02/07/17 10:54 General appearance: Present: cooperative, A&O X 3, no acute distress, severe distress, answers questions appropriately - VTE Documentation of Mechanical Device: Intermittent pneumatic compression device
[2017-02-07] MEDS ORDERED: Magnesium Sulfate 1 GM in D5% in Water 100 ML IVPB ONE (15:00)
== END 2017-02-07 14:55 | disposition left against medical advice (07) | DRG 372 ==
LOC: EMEROO 14:08 → 3BNU 14:08 → SUATTDRO 02-01 14:19
PROVIDERS: ADMIT Internal Medicine; ATTEND Internal Medicine

== ENCOUNTER 2019-09-13 21:28 | Inpatient (IN) ==
[2019-09-13] MEDS ORDERED: *HR* FentaNYL (PF) 100 MCG/2 ML VIAL IVP STA (21:37)
[2019-09-13] MEDS ORDERED: Ipratropium/Albuterol Neb 3 ML IH ONE (21:38)
[2019-09-13 22:26] LABS: Hematocrit 49.6 % (35.3-44.9); Hemoglobin 16.6 g/dL (11.5-15.4); Mean Corpuscular HGB Conc 33.5 g/dL (31.6-35.5); Mean Corpuscular Hemoglobin 28.6 pg (28.0-33.3); Mean Corpuscular Volume 85.4 fL (83.0-100.0); Mean Platelet Volume 9.7 fL (9.4-12.4); Monocytes # 0.8 K/mcL (0.0-1.3); Platelet Count 345 K/mcL (140-400); Red Blood Count 5.81 M/mcL (3.82-4.97); Red Cell Distribution Width 12.8 % (11.5-14.5); White Blood Count 4.8 K/mcL (4.3-11.1)
[2019-09-13 22:28] LABS: ABG Base Excess -10 mEq/L (-2 to 3); ABG HCO3 17 mEq/L (21-27); ABG Oxygen Saturation 100 % (95-98); ABG PCO2 38 mmHg (35-45); ABG PH 7.24 pH Units (7.32-7.45); ABG PO2 240 mmHg (85-104); ABG TCO2 18 mEq/L (20-26); Blood Gas Modality ST; Blood Gas Pressure Support 6 cm H2O
[2019-09-13 22:33] LABS: INR 1.2; Prothrombin Time 13.8 Seconds (9.4-12.1)
[2019-09-13 22:36] LABS: Activated Partial Thrombo Time 35.3 Seconds (26.0-36.0)
[2019-09-13 22:47] LABS: Albumin 3.9 g/dL (3.5-5.7); Albumin/Globulin Ratio 0.8 (1.1-2.2); Bilirubin,Direct 0.2 mg/dL (0.0-0.2); Bilirubin,Indirect 0.5 mg/dL (0.0-1.0); Bilirubin,Total 0.7 mg/dL (0.3-1.0); Globulin 4.9 g/dL (2.4-3.5); Total Protein 8.8 g/dL (6.4-8.9)
[2019-09-13 22:49] LABS: BUN/Creatinine Ratio 32 (6-26); Blood Urea Nitrogen 31 mg/dL (6-20); Calcium 10.9 mg/dL (8.6-10.3); Carbon Dioxide 15 mEq/L (23-29); Chloride 92 mEq/L (98-107); Glucose 416 mg/dL (70-105); Osmolality,Calculated 296 (280-300); Potassium 3.6 mEq/L (3.5-5.1); Sodium 131 mEq/L (136-145); eGFR For African Americans > 60 (> 60); eGFR For Non-African Americans 59 (> 60)
[2019-09-13 22:50] LABS: Troponin I < 0.03 ng/mL (< 0.04)
[2019-09-13 23:04] LABS: Lymphocytes # 0.4 K/mcL (0.6-4.6); Neutrophils # 3.7 K/mcL (1.6-8.9); Platelet Estimate Normal (Normal)
[2019-09-13] MEDS ORDERED: Isovue-370 500 ML BOTTLE IVP ONE (23:11)
[2019-09-13 23:12] LABS: Bilirubin,Urine Negative (Negative); Blood,Urine Small (Negative); Color,Urine Yellow (Yellow); Glucose,Urine (UA) >=1000 mg/dL (Normal); Ketones,Urine 80 mg/dL (Negative); Leukocyte Esterase,Urine Negative (Negative); Nitrite,Urine Negative (Negative); Protein,Urine 100 mg/dL (Neg-Trace); Specific Gravity,Urine > 1.030 (1.010-1.025); Urobilinogen,Urine Normal (Normal)
[2019-09-13] MEDS ORDERED: cefTRIAXone 1,000 MG in Water for inj. (sterile) 10 ML IVP ONE (23:12)
[2019-09-13] MEDS ORDERED: Azithromycin 500 MG in 0.9 % Sodium Chloride 250 ML IVPB ONE (23:13)
[2019-09-13] MEDS ORDERED: 0.9 % Sodium Chloride 1,000 ML IVC ONE (23:15)
[2019-09-13 23:17] LABS: Bacteria,Urine Moderate per hpf (None-Few); Squamous Epithelial Cell,Urine Many per lpf (None-Few); WBC,Urine 50-100 per hpf (0-3)
[2019-09-13 23:18] LABS: Clarity,Urine Slightly Cloudy (Clear)
[2019-09-13 23:31] LABS: Hyaline Casts,Urine Few per lpf (None-Few); RBC,Urine 0-3 per hpf (0-3); Yeast,Urine Moderate per hpf (None Seen)
[2019-09-14] MEDS ORDERED: *HR* FentaNYL (PF) 100 MCG/2 ML VIAL IVP ONE (00:26)
[2019-09-14] MEDS ORDERED: *HR* Dextrose 50 % in Water (Syg) 50 ML SYRINGE IVP PRN ×2 (01:23→01:56)
[2019-09-14] MEDS ORDERED: Insulin Human Regular 100 UNIT in 0.9 % Sodium Chloride 100 ML IVC SCH (01:30)
[2019-09-14] MEDS ORDERED: *HR* HYDROmorphone (PF) 1 MG/ML SYRINGE IVP STA (01:47)
[2019-09-14] MEDS ORDERED: 0.9 % Sodium Chloride 1,000 ML IVC ONE (01:52)
[2019-09-14] MEDS ORDERED: Insulin Regular, Human 100 UNIT/ML IV PRN (01:56)
[2019-09-14] MEDS ORDERED: D5% in 0.45% NACL w KCl 20 MEQ/1,000 ML MLS IVC PRN (01:56)
[2019-09-14] MEDS ORDERED: D5% in 0.45% NACL 1,000 ML IVC PRN (01:56)
[2019-09-14] MEDS ORDERED: Clindamycin 600 MG/50 ML 600 MG/50 ML IV.SOLN IVPB ONE (03:08)
[2019-09-14] MEDS ORDERED: FentaNYL (PF) 1,000 MCG in 0.9 % Sodium Chloride 80 ML IVC SCH (03:15)
[2019-09-14] MEDS ORDERED: *HR* Heparin 5,000 UNIT/ML VIAL IVP ONE (03:30)
[2019-09-14] MEDS ORDERED: *HR* Heparin 5,000 UNIT/ML VIAL IVP PRN ×2 (03:30)
[2019-09-14] MEDS ORDERED: *HR* Etomidate 20 MG/10 ML AMPUL IVP ONE ×2 (03:32→09:23)
[2019-09-14] MEDS ORDERED: *HR* Rocuronium Bromide 50 MG/5 ML VIAL IVP ONE (03:33)
[2019-09-14] MEDS ORDERED: Naloxone 0.4 MG/ML INJ IVP PRN (03:53)
[2019-09-14] MEDS: FentaNYL (PF) 1,000 MCG in 0.9 % Sodium Chloride 80 ML IVC SCH ×2 (04:01→21:04)
[2019-09-14] MEDS: DilTIAZem 50 MG in 0.9 % Sodium Chloride 40 ML IVC SCH (04:02)
[2019-09-14] MEDS: 0.9 % Sodium Chloride 1,000 ML IVC SCH ×5 (04:09→10:00)
[2019-09-14 04:31] LABS: ABG Base Excess -15 mEq/L (-2 to 3); ABG HCO3 18 mEq/L (21-27); ABG Oxygen Saturation 100 % (95-98); ABG PCO2 71 mmHg (35-45); ABG PH 7.01 pH Units (7.32-7.45); ABG PO2 247 mmHg (85-104); ABG TCO2 20 mEq/L (20-26); Blood Gas Modality ASSIST CONTROL; Blood Gas VT 450 cc
[2019-09-14] MEDS: 0.45 % Sodium Chloride w/KCl 20 MEQ/1,000 ML MLS IVC SCH ×11 (05:30→14:09)
[2019-09-14 07:05] LABS: ABG Base Excess -11 mEq/L (-2 to 3); ABG HCO3 17 mEq/L (21-27); ABG Oxygen Saturation 95 % (95-98); ABG PCO2 46 mmHg (35-45); ABG PH 7.19 pH Units (7.32-7.45); ABG PO2 91 mmHg (85-104); ABG TCO2 19 mEq/L (20-26); Blood Gas Modality AF; Blood Gas VT 400 cc
[2019-09-14] MEDS: Heparin 25,000 UNIT/250 ML D5W 25,000 UNIT/250 ML IV.SOLN IVC SCH (08:19)
[2019-09-14] MEDS ORDERED: Aminoglycoside Consult 1 EACH MC ONE (08:44)
[2019-09-14] MEDS ORDERED: *HR* Rocuronium Bromide 100 MG/10 ML VIAL IVC ONE (09:23)
[2019-09-14 09:46] LABS: Amphetamine Screen,Urine Negative ng/mL (Cutoff=1000); Barbiturate Screen,Urine Negative ng/mL (Cutoff=200); Benzodiazepines Screen,Urine Positive ng/mL (Cutoff=200); Cannabinoid Screen,Urine Positive ng/mL (Cutoff = 50); Cocaine Screen,Urine Negative ng/mL (Cutoff= 300); Opiate Screen,Urine Positive ng/mL (Cutoff=300); Phencyclidine Screen,Urine Negative ng/mL (Cutoff=25)
[2019-09-14 10:29] LABS: VBG HCO3 18 mEq/L (21-27); VBG PCO2 42 mmHg (41-51); VBG PH 7.24 pH Units (7.32-7.42); VBG PO2 191 mmHg (25-50)
[2019-09-14 10:43] LABS: Adenovirus Not Detected (Not Detect); Bordetella Pertussis Not Detected (Not Detect); Chlamydophila pneumoniae Not Detected (Not Detect); Coronavirus 229E Not Detected (Not Detect); Coronavirus HKU1 Not Detected (Not Detect); Coronavirus NL63 Not Detected (Not Detect); Coronavirus OC43 Not Detected (Not Detect); Human Metapneumovirus Not Detected (Not Detect); Human Rhinovirus/Enterovirus Not Detected (Not Detect); Influenza A Subtype 2009 H1 Not Detected (Not Detect); Influenza B Not Detected (Not Detect); Mycoplasma pneumoniae Not Detected (Not Detect); Parainfluenza Virus 1 Not Detected (Not Detect); Parainfluenza Virus 2 Not Detected (Not Detect); Parainfluenza Virus 3 Not Detected (Not Detect); Parainfluenza Virus 4 Not Detected (Not Detect); Respiratory Syncytial Virus Not Detected (Not Detect)
[2019-09-14] MEDS ORDERED: Piperacillin/Tazobactam 3.375 GM in 0.9 % Sodium Chloride Mini Bag 100 ML IVPB ONE (11:07)
[2019-09-14 11:38] LABS: Hematocrit 39.9 % (35.3-44.9); Mean Corpuscular HGB Conc 33.3 g/dL (31.6-35.5); Mean Corpuscular Hemoglobin 28.4 pg (28.0-33.3); Mean Corpuscular Volume 85.3 fL (83.0-100.0); Mean Platelet Volume 9.7 fL (9.4-12.4); Platelet Count 257 K/mcL (140-400); Red Blood Count 4.68 M/mcL (3.82-4.97); Red Cell Distribution Width 13.1 % (11.5-14.5); White Blood Count 3.6 K/mcL (4.3-11.1)
[2019-09-14 11:42] LABS: Hemoglobin 13.3 g/dL (11.5-15.4)
[2019-09-14 11:50] LABS: Estimated Average Glucose 329 mg/dl
[2019-09-14 11:57] LABS: BUN/Creatinine Ratio 41 (6-26); Blood Urea Nitrogen 28 mg/dL (6-20); Calcium 8.4 mg/dL (8.6-10.3); Carbon Dioxide 21 mEq/L (23-29); Chloride 106 mEq/L (98-107); Glucose 242 mg/dL (70-105); Osmolality,Calculated 295 (280-300); Potassium 3.9 mEq/L (3.5-5.1); Sodium 136 mEq/L (136-145); eGFR For African Americans > 60 (> 60); eGFR For Non-African Americans > 60 (> 60)
[2019-09-14 12:12] LABS: Lymphocytes # 0.8 K/mcL (0.6-4.6); Monocytes # 0.5 K/mcL (0.0-1.3); Neutrophils # 2.3 K/mcL (1.6-8.9); Platelet Estimate Normal (Normal); Reactive Lymphocytes Present (Not Present)
[2019-09-14 12:19] LABS: Magnesium 1.8 mg/dL (1.6-2.6); Phosphorous 1.3 mg/dL (2.7-4.5)
[2019-09-14] MEDS: Insulin DETEMIR 100 UNIT/ML X5UNITS SQ SCH ×2 (13:29→20:17)
[2019-09-14 15:23] LABS: BUN/Creatinine Ratio 36 (6-26); Blood Urea Nitrogen 24 mg/dL (6-20); Calcium 8.2 mg/dL (8.6-10.3); Carbon Dioxide 21 mEq/L (23-29); Chloride 107 mEq/L (98-107); Glucose 238 mg/dL (70-105); Osmolality,Calculated 294 (280-300); Potassium 4.4 mEq/L (3.5-5.1); Sodium 136 mEq/L (136-145); eGFR For African Americans > 60 (> 60); eGFR For Non-African Americans > 60 (> 60)
[2019-09-14] MEDS: Dexmedetomidine HCl 400 MCG/100 ML MLS IVC SCH (17:08)
[2019-09-14] MEDS: Doxycycline 100 MG in 0.9 % Sodium Chloride Mini Bag 100 ML IVPB SCH (17:08)
[2019-09-14] MEDS: Acetaminophen 325 MG TABLET PO PRN (17:08)
[2019-09-14] MEDS: Insulin LISPRO 300 UNITS/3 ML VIAL SQ SCH ×2 (17:08→19:41)
[2019-09-14] MEDS ORDERED: Azithromycin 500 MG in 0.9 % Sodium Chloride 250 ML IVPB SCH (18:00)
[2019-09-14] MEDS ORDERED: cefTRIAXone 1,000 MG in Water for inj. (sterile) 10 ML IVPB SCH (18:00)
[2019-09-14] MEDS ORDERED: Insulin LISPRO 300 UNITS/3 ML VIAL SQ SCH (18:00)
[2019-09-14] MEDS ORDERED: Potassium Phosphate 44 MEQ in 0.9 % Sodium Chloride 250 ML IVPB ONE (18:18)
[2019-09-14 18:56] LABS: BUN/Creatinine Ratio 34 (6-26); Blood Urea Nitrogen 23 mg/dL (6-20); Calcium 8.4 mg/dL (8.6-10.3); Carbon Dioxide 21 mEq/L (23-29); Chloride 107 mEq/L (98-107); Glucose 235 mg/dL (70-105); Osmolality,Calculated 289 (280-300); Potassium 4.3 mEq/L (3.5-5.1); Sodium 134 mEq/L (136-145); eGFR For African Americans > 60 (> 60); eGFR For Non-African Americans > 60 (> 60)
[2019-09-14] MEDS: Piperacillin/Tazobactam 3.375 GM in 0.9 % Sodium Chloride Mini Bag 100 ML IVPB SCH (19:48)
[2019-09-14] MEDS: Chlorhexidine Rinse 15 ML MOUTHWASH MM SCH (20:16)
[2019-09-14] MEDS: Artificial Tears SOLN 15 ML BOTTLE BOTH EYES SCH (20:17)
[2019-09-15] MEDS: Artificial Tears SOLN 15 ML BOTTLE BOTH EYES SCH ×6 (00:24→20:13)
[2019-09-15] MEDS: Insulin LISPRO 300 UNITS/3 ML VIAL SQ SCH ×6 (00:25→20:14)
[2019-09-15] MEDS: DilTIAZem 50 MG in 0.9 % Sodium Chloride 40 ML IVC SCH ×2 (00:25→23:39)
[2019-09-15] MEDS: Heparin 25,000 UNIT/250 ML D5W 25,000 UNIT/250 ML IV.SOLN IVC SCH (02:01)
[2019-09-15] MEDS: Piperacillin/Tazobactam 3.375 GM in 0.9 % Sodium Chloride Mini Bag 100 ML IVPB SCH (04:04)
[2019-09-15] MEDS: Dexmedetomidine HCl 400 MCG/100 ML MLS IVC SCH ×2 (04:05→12:27)
[2019-09-15 04:18] LABS: Hematocrit 36.2 % (35.3-44.9); Hemoglobin 12.3 g/dL (11.5-15.4); Mean Corpuscular Hemoglobin 28.8 pg (28.0-33.3); Mean Corpuscular Volume 84.8 fL (83.0-100.0); Mean Platelet Volume 9.9 fL (9.4-12.4); Nucleated Red Blood Cells 1.5 /100 WBC (0); Platelet Count 219 K/mcL (140-400); Red Blood Count 4.27 M/mcL (3.82-4.97); Red Cell Distribution Width 13.3 % (11.5-14.5)
[2019-09-15 04:19] LABS: White Blood Count 6.8 K/mcL (4.3-11.1)
[2019-09-15 04:35] LABS: Lymphocytes # 1.4 K/mcL (0.6-4.6); Monocytes # 0.4 K/mcL (0.0-1.3); Platelet Estimate Normal (Normal); Reactive Lymphocytes Present (Not Present)
[2019-09-15 04:38] LABS: BUN/Creatinine Ratio 33 (6-26); Blood Urea Nitrogen 30 mg/dL (6-20); Calcium 8.4 mg/dL (8.6-10.3); Carbon Dioxide 19 mEq/L (23-29); Chloride 108 mEq/L (98-107); Glucose 203 mg/dL (70-105); Magnesium 2.4 mg/dL (1.6-2.6); Osmolality,Calculated 292 (280-300); Phosphorous 2.6 mg/dL (2.7-4.5); Potassium 5.4 mEq/L (3.5-5.1); Sodium 135 mEq/L (136-145); eGFR For African Americans > 60 (> 60); eGFR For Non-African Americans > 60 (> 60)
[2019-09-15] MEDS: 0.45 % Sodium Chloride w/KCl 20 MEQ/1,000 ML MLS IVC SCH ×2 (05:00→07:59)
[2019-09-15] MEDS: Doxycycline 100 MG in 0.9 % Sodium Chloride Mini Bag 100 ML IVPB SCH (05:11)
[2019-09-15 05:19] LABS: ABG Base Excess -6 mEq/L (-2 to 3); ABG HCO3 20 mEq/L (21-27); ABG Oxygen Saturation 98 % (95-98); ABG PCO2 38 mmHg (35-45); ABG PH 7.33 pH Units (7.32-7.45); ABG PO2 114 mmHg (85-104); ABG TCO2 21 mEq/L (20-26); Blood Gas Modality ASSIST CONTROL; Blood Gas VT 400 cc
[2019-09-15] MEDS: Chlorhexidine Rinse 15 ML MOUTHWASH MM SCH ×2 (07:59→20:13)
[2019-09-15] MEDS: Insulin DETEMIR 100 UNIT/ML X5UNITS SQ SCH ×2 (07:59→20:14)
[2019-09-15] MEDS ORDERED: Furosemide 40 MG/4 ML VIAL IVP ONE ×2 (08:47→16:15)
[2019-09-15] MEDS ORDERED: Furosemide 40 MG/4 ML VIAL ONE (09:23)
[2019-09-15] MEDS: cefTRIAXone 2,000 MG in Water for inj. (sterile) 20 ML IVP SCH (09:37)
[2019-09-15 09:58] LABS: ABG Base Excess -5 mEq/L (-2 to 3); ABG HCO3 21 mEq/L (21-27); ABG Oxygen Saturation 99 % (95-98); ABG PCO2 39 mmHg (35-45); ABG PH 7.34 pH Units (7.32-7.45); ABG PO2 122 mmHg (85-104); ABG TCO2 22 mEq/L (20-26); Blood Gas Modality ASSIST CONTROL; Blood Gas VT 400 cc
[2019-09-15] MEDS: Magic Mouthwash 10 ML UD Cup PO SCH ×2 (11:06→15:36)
[2019-09-15] MEDS: Pantoprazole 40 MG VIAL IVP SCH (11:06)
[2019-09-15] MEDS: *HR* Heparin 5,000 UNIT/ML VIAL SQ SCH ×2 (14:24→20:14)
[2019-09-15 14:33] LABS: BUN/Creatinine Ratio 35 (6-26); Blood Urea Nitrogen 28 mg/dL (6-20); Calcium 8.7 mg/dL (8.6-10.3); Carbon Dioxide 23 mEq/L (23-29); Chloride 107 mEq/L (98-107); Glucose 131 mg/dL (70-105); Osmolality,Calculated 295 (280-300); Potassium 4.3 mEq/L (3.5-5.1); Sodium 139 mEq/L (136-145); eGFR For African Americans > 60 (> 60); eGFR For Non-African Americans > 60 (> 60)
[2019-09-15] MEDS: Azithromycin 250 MG TABLET PO SCH (15:36)
[2019-09-15] MEDS: Acetaminophen 325 MG TABLET PO PRN (15:36)
[2019-09-15] MEDS: FentaNYL (PF) 1,000 MCG in 0.9 % Sodium Chloride 80 ML IVC SCH (20:15)
[2019-09-16] MEDS: Insulin LISPRO 300 UNITS/3 ML VIAL SQ SCH ×6 (00:13→20:46)
[2019-09-16] MEDS: Artificial Tears SOLN 15 ML BOTTLE BOTH EYES SCH ×6 (00:13→20:46)
[2019-09-16 04:17] LABS: Hematocrit 37.4 % (35.3-44.9); Hemoglobin 12.5 g/dL (11.5-15.4); Mean Corpuscular HGB Conc 33.4 g/dL (31.6-35.5); Mean Corpuscular Hemoglobin 28.4 pg (28.0-33.3); Mean Platelet Volume 9.9 fL (9.4-12.4); Nucleated Red Blood Cells 0.3 /100 WBC (0); Platelet Count 275 K/mcL (140-400); Red Cell Distribution Width 13.5 % (11.5-14.5); White Blood Count 9.2 K/mcL (4.3-11.1)
[2019-09-16 04:33] LABS: ABG Base Excess -2 mEq/L (-2 to 3); ABG HCO3 23 mEq/L (21-27); ABG Oxygen Saturation 99 % (95-98); ABG PCO2 40 mmHg (35-45); ABG PH 7.37 pH Units (7.32-7.45); ABG PO2 139 mmHg (85-104); ABG TCO2 25 mEq/L (20-26); Blood Gas Modality ASSIST CONTROL; Blood Gas VT 400 cc
[2019-09-16 04:44] LABS: BUN/Creatinine Ratio 42 (6-26); Blood Urea Nitrogen 32 mg/dL (6-20); Calcium 8.4 mg/dL (8.6-10.3); Carbon Dioxide 24 mEq/L (23-29); Chloride 106 mEq/L (98-107); Glucose 179 mg/dL (70-105); Magnesium 1.9 mg/dL (1.6-2.6); Osmolality,Calculated 303 (280-300); Phosphorous 4.2 mg/dL (2.7-4.5); Potassium 3.5 mEq/L (3.5-5.1); Sodium 141 mEq/L (136-145); eGFR For African Americans > 60 (> 60); eGFR For Non-African Americans > 60 (> 60)
[2019-09-16 04:57] LABS: Lymphocytes # 2.4 K/mcL (0.6-4.6); Monocytes # 0.4 K/mcL (0.0-1.3); Neutrophils # 6.4 K/mcL (1.6-8.9); Platelet Estimate Normal (Normal); Reactive Lymphocytes Present (Not Present)
[2019-09-16] MEDS: *HR* Heparin 5,000 UNIT/ML VIAL SQ SCH ×3 (05:02→20:45)
[2019-09-16] MEDS: Dexmedetomidine HCl 400 MCG/100 ML MLS IVC SCH ×2 (05:02→23:13)
[2019-09-16] MEDS: Magic Mouthwash 10 ML UD Cup PO SCH ×3 (08:22→15:30)
[2019-09-16] MEDS: Insulin DETEMIR 100 UNIT/ML X5UNITS SQ SCH ×2 (08:25→20:43)
[2019-09-16] MEDS: Chlorhexidine Rinse 15 ML MOUTHWASH MM SCH ×2 (08:25→20:45)
[2019-09-16] MEDS: cefTRIAXone 2,000 MG in Water for inj. (sterile) 20 ML IVP SCH (08:25)
[2019-09-16] MEDS: Ipratropium/Albuterol Neb 3 ML IH SCH ×5 (08:47→23:04)
[2019-09-16] MEDS: Pantoprazole 40 MG VIAL IVP SCH (11:38)
[2019-09-16] MEDS: Azithromycin 250 MG TABLET PO SCH (15:32)
[2019-09-17] MEDS: Insulin LISPRO 300 UNITS/3 ML VIAL SQ SCH ×7 (00:45→23:47)
[2019-09-17] MEDS: Artificial Tears SOLN 15 ML BOTTLE BOTH EYES SCH ×6 (00:45→19:35)
[2019-09-17] MEDS: DilTIAZem 50 MG in 0.9 % Sodium Chloride 40 ML IVC SCH (02:32)
[2019-09-17] MEDS: Ipratropium/Albuterol Neb 3 ML IH SCH ×6 (03:10→23:02)
[2019-09-17 04:26] LABS: ABG Base Excess 4 mEq/L (-2 to 3); ABG HCO3 30 mEq/L (21-27); ABG Oxygen Saturation 98 % (95-98); ABG PCO2 46 mmHg (35-45); ABG PH 7.42 pH Units (7.32-7.45); ABG PO2 96 mmHg (85-104); ABG TCO2 31 mEq/L (20-26); Blood Gas Modality AF; Blood Gas VT 400 cc
[2019-09-17] MEDS: FentaNYL (PF) 1,000 MCG in 0.9 % Sodium Chloride 80 ML IVC SCH (04:51)
[2019-09-17 05:06] LABS: Hematocrit 34.7 % (35.3-44.9); Hemoglobin 11.6 g/dL (11.5-15.4); Mean Corpuscular HGB Conc 33.4 g/dL (31.6-35.5); Mean Corpuscular Hemoglobin 28.1 pg (28.0-33.3); Mean Platelet Volume 9.5 fL (9.4-12.4); Platelet Count 254 K/mcL (140-400); Red Blood Count 4.13 M/mcL (3.82-4.97); Red Cell Distribution Width 13.5 % (11.5-14.5); White Blood Count 8.9 K/mcL (4.3-11.1)
[2019-09-17 05:07] LABS: BUN/Creatinine Ratio 42 (6-26); Blood Urea Nitrogen 22 mg/dL (6-20); Calcium 8.7 mg/dL (8.6-10.3); Carbon Dioxide 29 mEq/L (23-29); Chloride 110 mEq/L (98-107); Glucose 186 mg/dL (70-105); Magnesium 2.2 mg/dL (1.6-2.6); Osmolality,Calculated 306 (280-300); Phosphorous 3.1 mg/dL (2.7-4.5); Potassium 3.2 mEq/L (3.5-5.1); Sodium 144 mEq/L (136-145); eGFR For African Americans > 60 (> 60); eGFR For Non-African Americans > 60 (> 60)
[2019-09-17] MEDS ORDERED: Potassium Chloride Elixir 20 MEQ/15 ML UDC GTUBE ONE (05:14)
[2019-09-17] MEDS: *HR* Heparin 5,000 UNIT/ML VIAL SQ SCH ×3 (05:34→19:35)
[2019-09-17 06:02] LABS: Lymphocytes # 1.1 K/mcL (0.6-4.6)
[2019-09-17 06:03] LABS: Monocytes # 0.5 K/mcL (0.0-1.3); Neutrophils # 7.1 K/mcL (1.6-8.9); Platelet Estimate Normal (Normal); Reactive Lymphocytes Present (Not Present); Toxic Granulation Present (Not Present)
[2019-09-17] MEDS: Magic Mouthwash 10 ML UD Cup PO SCH ×3 (07:51→15:09)
[2019-09-17] MEDS: Chlorhexidine Rinse 15 ML MOUTHWASH MM SCH ×2 (07:52→19:35)
[2019-09-17] MEDS: cefTRIAXone 2,000 MG in Water for inj. (sterile) 20 ML IVP SCH (07:53)
[2019-09-17] MEDS: Insulin DETEMIR 100 UNIT/ML X5UNITS SQ SCH ×2 (07:53→19:37)
[2019-09-17] MEDS: Pantoprazole 40 MG VIAL IVP SCH (11:00)
[2019-09-17] MEDS: Azithromycin 250 MG TABLET PO SCH (14:02)
[2019-09-17] MEDS: MethylPREDNISolone 40 MG/ML VIAL IVP SCH (16:41)
[2019-09-17] MEDS: *HR* Metoprolol 5 MG/5 ML VIAL IVP PRN (22:50)
[2019-09-18] MEDS: *HR* Metoprolol 5 MG/5 ML VIAL IVP PRN ×3 (02:53→20:11)
[2019-09-18] MEDS: Ipratropium/Albuterol Neb 3 ML IH SCH ×6 (03:09→23:46)
[2019-09-18] MEDS: MethylPREDNISolone 40 MG/ML VIAL IVP SCH ×2 (05:27→17:18)
[2019-09-18] MEDS: *HR* Heparin 5,000 UNIT/ML VIAL SQ SCH ×3 (05:27→19:54)
[2019-09-18] MEDS: Insulin LISPRO 300 UNITS/3 ML VIAL SQ SCH ×6 (05:28→23:21)
[2019-09-18] MEDS: Magic Mouthwash 10 ML UD Cup PO SCH ×3 (07:59→14:57)
[2019-09-18] MEDS: Insulin DETEMIR 100 UNIT/ML X5UNITS SQ SCH ×2 (08:00→19:54)
[2019-09-18] MEDS: cefTRIAXone 2,000 MG in Water for inj. (sterile) 20 ML IVP SCH (08:00)
[2019-09-18 08:11] LABS: Hematocrit 42.4 % (35.3-44.9); Immature Granulocytes % 6.4 % (0-4); Lymphocytes # 0.6 K/mcL (0.6-4.6); Lymphocytes % 5.8 %; Mean Corpuscular HGB Conc 32.3 g/dL (31.6-35.5); Mean Corpuscular Hemoglobin 28.4 pg (28.0-33.3); Mean Platelet Volume 9.8 fL (9.4-12.4); Monocytes % 9.4 %; Neutrophils # 8.6 K/mcL (1.6-8.9); Platelet Count 316 K/mcL (140-400); Red Blood Count 4.82 M/mcL (3.82-4.97); Red Cell Distribution Width 13.4 % (11.5-14.5); Segmented Neutrophils % 78.4 %; White Blood Count 10.9 K/mcL (4.3-11.1)
[2019-09-18 08:15] LABS: BUN/Creatinine Ratio 29 (6-26); Blood Urea Nitrogen 15 mg/dL (6-20); Calcium 9.5 mg/dL (8.6-10.3); Carbon Dioxide 30 mEq/L (23-29); Chloride 106 mEq/L (98-107); Glucose 179 mg/dL (70-105); Magnesium 2.4 mg/dL (1.6-2.6); Osmolality,Calculated 313 (280-300); Phosphorous 2.9 mg/dL (2.7-4.5); Potassium 3.3 mEq/L (3.5-5.1); Sodium 149 mEq/L (136-145); eGFR For African Americans > 60 (> 60); eGFR For Non-African Americans > 60 (> 60)
[2019-09-18 08:28] LABS: Hemoglobin 13.7 g/dL (11.5-15.4)
[2019-09-18 09:07] LABS: Platelet Estimate Normal (Normal)
[2019-09-18] MEDS ORDERED: Albuterol 2.5 MG/3 ML NEBULIZER IH PRN ×2 (10:51→17:44)
[2019-09-18] MEDS ORDERED: Budesonide/Formoterol 160/4.5 1 PUFF INH IH SCH (11:00)
[2019-09-18] MEDS ORDERED: Potassium Chloride 40 MEQ, Lidocaine 1% 2 ML in 0.9 % Sodium Chloride 500 ML IVPB ONE (11:00)
[2019-09-18] MEDS ORDERED: D5% in Water 1,000 ML IVC SCH ×2 (11:00→17:44)
[2019-09-18] MEDS: Pantoprazole 40 MG VIAL IVP SCH (11:34)
[2019-09-18] MEDS: Azithromycin 250 MG TABLET PO SCH (14:57)
[2019-09-18] MEDS ORDERED: Naloxone 0.4 MG/ML INJ IVP PRN (17:44)
[2019-09-18] MEDS ORDERED: D5% in 0.45% NACL 1,000 ML IVC PRN (17:44)
[2019-09-18] MEDS ORDERED: *HR* Dextrose 50 % in Water (Syg) 50 ML SYRINGE IVP PRN (17:44)
[2019-09-18] MEDS ORDERED: Acetaminophen IV 500 MG/50 ML INFUS..BTL IVPB ONE (18:10)
[2019-09-18] MEDS: Budesonide/Formoterol 160/4.5 1 PUFF INH IH SCH (19:36)
[2019-09-18] MEDS: Acetaminophen 325 MG TABLET PO PRN (21:21)
[2019-09-19] MEDS: Ibuprofen 400 MG TABLET PO PRN ×2 (00:42→07:02)
[2019-09-19] MEDS: Acetaminophen 325 MG TABLET PO PRN (03:48)
[2019-09-19] MEDS: *HR* Metoprolol 5 MG/5 ML VIAL IVP PRN (03:48)
[2019-09-19] MEDS: Ipratropium/Albuterol Neb 3 ML IH SCH ×5 (03:49→20:52)
[2019-09-19] MEDS: Insulin LISPRO 300 UNITS/3 ML VIAL SQ SCH ×5 (03:49→21:54)
[2019-09-19] MEDS: *HR* Heparin 5,000 UNIT/ML VIAL SQ SCH ×3 (05:59→21:54)
[2019-09-19] MEDS: MethylPREDNISolone 40 MG/ML VIAL IVP SCH ×2 (06:00→18:29)
[2019-09-19] MEDS: Budesonide/Formoterol 160/4.5 1 PUFF INH IH SCH ×2 (07:42→20:55)
[2019-09-19] MEDS: cefTRIAXone 2,000 MG in Water for inj. (sterile) 20 ML IVP SCH (07:45)
[2019-09-19] MEDS: Insulin DETEMIR 100 UNIT/ML X5UNITS SQ SCH ×2 (07:46→21:54)
[2019-09-19 11:13] LABS: Hematocrit 39.2 % (35.3-44.9); Hemoglobin 13.6 g/dL (11.5-15.4); Mean Corpuscular HGB Conc 34.7 g/dL (31.6-35.5); Mean Corpuscular Hemoglobin 28.6 pg (28.0-33.3); Mean Corpuscular Volume 82.4 fL (83.0-100.0); Mean Platelet Volume 10.2 fL (9.4-12.4); Platelet Count 347 K/mcL (140-400); Red Blood Count 4.76 M/mcL (3.82-4.97); Red Cell Distribution Width 13.1 % (11.5-14.5); White Blood Count 10.6 K/mcL (4.3-11.1)
[2019-09-19 11:18] LABS: BUN/Creatinine Ratio 29 (6-26); Blood Urea Nitrogen 16 mg/dL (6-20); Calcium 8.8 mg/dL (8.6-10.3); Carbon Dioxide 26 mEq/L (23-29); Chloride 97 mEq/L (98-107); Glucose 218 mg/dL (70-105); Osmolality,Calculated 290 (280-300); Potassium 3.6 mEq/L (3.5-5.1); Sodium 136 mEq/L (136-145); eGFR For African Americans > 60 (> 60); eGFR For Non-African Americans > 60 (> 60)
[2019-09-19 11:31] LABS: BUN/Creatinine Ratio 31 (6-26); Blood Urea Nitrogen 17 mg/dL (6-20); Calcium 8.9 mg/dL (8.6-10.3); Carbon Dioxide 26 mEq/L (23-29); Chloride 99 mEq/L (98-107); Glucose 219 mg/dL (70-105); Magnesium 2.2 mg/dL (1.6-2.6); Osmolality,Calculated 292 (280-300); Potassium 3.7 mEq/L (3.5-5.1); Sodium 137 mEq/L (136-145); eGFR For African Americans > 60 (> 60); eGFR For Non-African Americans > 60 (> 60)
[2019-09-19 11:38] LABS: Lymphocytes # 0.6 K/mcL (0.6-4.6); Monocytes # 0.2 K/mcL (0.0-1.3); Neutrophils # 9.8 K/mcL (1.6-8.9)
[2019-09-19] MEDS ORDERED: Pantoprazole 40 MG VIAL IVP SCH (12:00)
[2019-09-19] MEDS ORDERED: *HR* Buprenorphine HCl 8 MG TAB.SUBL SL SCH (15:00)
[2019-09-19] MEDS ORDERED: E-Z-HD (BARIUM SULF) SUSPENSION PO ONE (16:52)
[2019-09-19] MEDS ORDERED: E-Z-PAQUE (BARIUM SULF) SUSP 1 BOTTLE PO ONE (16:52)
[2019-09-20] MEDS: Insulin LISPRO 300 UNITS/3 ML VIAL SQ SCH ×2 (00:46→04:19)
[2019-09-20] MEDS: Ipratropium/Albuterol Neb 3 ML IH SCH ×4 (00:47→10:59)
[2019-09-20 04:58] LABS: Hematocrit 39.4 % (35.3-44.9); Hemoglobin 13.7 g/dL (11.5-15.4); Mean Corpuscular HGB Conc 34.8 g/dL (31.6-35.5); Mean Corpuscular Hemoglobin 28.5 pg (28.0-33.3); Mean Corpuscular Volume 81.9 fL (83.0-100.0); Mean Platelet Volume 10.6 fL (9.4-12.4); Platelet Count 287 K/mcL (140-400); Red Blood Count 4.81 M/mcL (3.82-4.97); Red Cell Distribution Width 12.9 % (11.5-14.5); White Blood Count 8.7 K/mcL (4.3-11.1)
[2019-09-20 05:17] LABS: BUN/Creatinine Ratio 39 (6-26); Blood Urea Nitrogen 23 mg/dL (6-20); Calcium 8.9 mg/dL (8.6-10.3); Carbon Dioxide 25 mEq/L (23-29); Chloride 101 mEq/L (98-107); Glucose 233 mg/dL (70-105); Magnesium 2.4 mg/dL (1.6-2.6); Osmolality,Calculated 293 (280-300); Phosphorous 3.4 mg/dL (2.7-4.5); Potassium 4.4 mEq/L (3.5-5.1); Sodium 136 mEq/L (136-145); eGFR For African Americans > 60 (> 60); eGFR For Non-African Americans > 60 (> 60)
[2019-09-20] MEDS: *HR* Heparin 5,000 UNIT/ML VIAL SQ SCH (05:30)
[2019-09-20 06:09] LABS: Lymphocytes # 1.2 K/mcL (0.6-4.6); Monocytes # 0.2 K/mcL (0.0-1.3); Neutrophils # 7.3 K/mcL (1.6-8.9); Platelet Estimate Normal (Normal)
[2019-09-20] MEDS: MethylPREDNISolone 40 MG/ML VIAL IVP SCH (06:09)
[2019-09-20 06:56] VITALS: BP 157/71
[2019-09-20] MEDS ORDERED: Insulin LISPRO 300 UNITS/3 ML VIAL SQ SCH (07:30)
[2019-09-20] MEDS: Budesonide/Formoterol 160/4.5 1 PUFF INH IH SCH (07:42)
[2019-09-20] MEDS: cefTRIAXone 2,000 MG in Water for inj. (sterile) 20 ML IVP SCH (08:01)
[2019-09-20] MEDS ORDERED: metroNIDAZOLE 500 MG TABLET PO SCH (09:00)
[2019-09-20] MEDS ORDERED: Insulin DETEMIR 100 UNIT/ML X5UNITS SQ SCH (21:00)
== END 2019-09-20 12:11 | disposition home health service (06) | DRG 871 ==
LOC: EMEROOARM 21:28 → 2NNU 21:28 → ICNU 09-14 02:43 → SUATTDRO 09-14 03:53 → ICNU 09-14 05:00 → 3ANU 09-19 18:21
PROVIDERS: ADMIT Student in an Organized Health Care Education/Training Program; ATTEND Internal Medicine

== ENCOUNTER 2020-01-02 10:59 | Observation (INO) ==
[2020-01-02] MEDS ORDERED: Ipratropium/Albuterol Neb 3 ML IH ONE (11:18)
[2020-01-02] MEDS ORDERED: Ondansetron ODT 4 MG TAB.RAPDIS SL ONE (11:30)
[2020-01-02] MEDS ORDERED: Isovue-370 500 ML BOTTLE IVP ONE ×2 (12:01→12:26)
[2020-01-02 12:06] LABS: Hematocrit 37.9 % (35.3-44.9); Hemoglobin 11.1 g/dL (11.5-15.4); Mean Corpuscular HGB Conc 29.3 g/dL (31.6-35.5); Mean Corpuscular Hemoglobin 25.7 pg (28.0-33.3); Mean Corpuscular Volume 87.7 fL (83.0-100.0); Mean Platelet Volume 9.3 fL (9.4-12.4); Platelet Count 373 K/mcL (140-400); Red Blood Count 4.32 M/mcL (3.82-4.97); Red Cell Distribution Width 14.9 % (11.5-14.5); White Blood Count 8.3 K/mcL (4.3-11.1)
[2020-01-02] MEDS ORDERED: *HR* FentaNYL (PF) 100 MCG/2 ML VIAL IVP ONE (13:18)
[2020-01-02 13:26] LABS: Alanine Aminotransferase 15 Units/L (7-52); Albumin 3.5 g/dL (3.5-5.7); Alkaline Phosphatase 167 Units/L (34-104); Aspartate Amino Transferase 13 Units/L (13-39); BUN/Creatinine Ratio 36 (6-26); Bilirubin,Total 0.3 mg/dL (0.3-1.0); Blood Urea Nitrogen 35 mg/dL (6-20); Calcium 9.2 mg/dL (8.6-10.3); Carbon Dioxide 28 mEq/L (23-29); Chloride 103 mEq/L (98-107); Globulin 3.6 g/dL (2.4-3.5); Glucose 173 mg/dL (70-105); Osmolality,Calculated 288 (280-300); Potassium 5.7 mEq/L (3.5-5.1); Sodium 133 mEq/L (136-145); Total Protein 7.1 g/dL (6.4-8.9); eGFR For African Americans > 60 (> 60); eGFR For Non-African Americans 60 (> 60)
[2020-01-02] MEDS ORDERED: methylPREDNISolone 125 MG/2 ML VIAL IVP ONE (14:11)
[2020-01-02] MEDS ORDERED: Naloxone 0.4 MG/ML INJ IVP PRN (15:59)
[2020-01-02] MEDS ORDERED: *HR* Dextrose 50 % in Water (Vial) 50 ML VIAL IVP ONE (16:00)
[2020-01-02] MEDS ORDERED: Insulin Human Regular 10 UNIT in 0.9 % Sodium Chloride 10 ML IV ONE (16:00)
[2020-01-02] MEDS ORDERED: D5% in Water 1,000 ML IVC PRN (16:02)
[2020-01-02] MEDS ORDERED: *HR* Dextrose 50 % in Water (Syg) 50 ML SYRINGE IVP PRN (16:02)
[2020-01-02] MEDS ORDERED: Dextrose Gel 15 GM/37.5 ML TUBE PO PRN ×2 (16:02)
[2020-01-02 16:10] LABS: Bilirubin,Urine Negative (Negative); Blood,Urine Negative (Negative); Clarity,Urine Clear (Clear); Color,Urine Yellow (Yellow); Glucose,Urine (UA) Normal (Normal); Ketones,Urine Negative (Negative); Leukocyte Esterase,Urine Large (Negative); Nitrite,Urine Negative (Negative); PH,Urine 5.5 pH Units (5.0-8.0); Protein,Urine Trace mg/dL (Neg-Trace); Specific Gravity,Urine > 1.030 (1.010-1.025); Urobilinogen,Urine Normal (Normal)
[2020-01-02 16:12] LABS: Bacteria,Urine Moderate per hpf (None-Few); Hyaline Casts,Urine None Seen per lpf (None-Few); Squamous Epithelial Cell,Urine Many per lpf (None-Few); WBC,Urine TNTC per hpf (0-3)
[2020-01-02 16:28] LABS: Estimated Average Glucose 192 mg/dl
[2020-01-02] MEDS: Insulin LISPRO 300 UNITS/3 ML VIAL SQ SCH (17:18)
[2020-01-02] MEDS: Ipratropium/Albuterol Neb 3 ML IH SCH ×2 (19:10→21:21)
[2020-01-02] MEDS ORDERED: Milk and Molasses Enema 200 ML RC ONE (20:00)
[2020-01-02] MEDS ORDERED: Insulin LISPRO 300 UNITS/3 ML VIAL SQ SCH (21:00)
[2020-01-02] MEDS: Budesonide/Formoterol 160/4.5 1 PUFF INH IH SCH (21:36)
[2020-01-02] MEDS: *HR* Heparin 5,000 UNIT/ML VIAL SQ SCH (22:54)
[2020-01-02] MEDS: *HR* Buprenorphine HCl 8 MG TAB.SUBL SL SCH (22:54)
[2020-01-02] MEDS: Insulin DETEMIR 100 UNIT/ML X5UNITS SQ SCH (22:55)
[2020-01-02] MEDS: Azithromycin 500 MG in 0.9 % Sodium Chloride 250 ML IVPB SCH (22:56)
[2020-01-02] MEDS: Furosemide 40 MG/4 ML VIAL IVP SCH (23:27)
[2020-01-03] MEDS: *HR* Heparin 5,000 UNIT/ML VIAL SQ SCH (05:38)
[2020-01-03] MEDS: Budesonide/Formoterol 160/4.5 1 PUFF INH IH SCH ×2 (07:55→20:11)
[2020-01-03] MEDS: Insulin LISPRO 300 UNITS/3 ML VIAL SQ SCH ×3 (08:21→16:17)
[2020-01-03] MEDS: *HR* Buprenorphine HCl 8 MG TAB.SUBL SL SCH ×2 (08:22→20:03)
[2020-01-03] MEDS: Furosemide 40 MG/4 ML VIAL IVP SCH (08:22)
[2020-01-03] MEDS ORDERED: lisinopriL 20 MG TABLET PO SCH (09:00)
[2020-01-03 10:14] LABS: Basophils % 0.1 %; Hematocrit 41.9 % (35.3-44.9); Hemoglobin 12.4 g/dL (11.5-15.4); Immature Granulocytes % 0.3 % (0-4); Lymphocytes # 0.9 K/mcL (0.6-4.6); Lymphocytes % 11.6 %; Mean Corpuscular HGB Conc 29.6 g/dL (31.6-35.5); Mean Corpuscular Hemoglobin 25.9 pg (28.0-33.3); Mean Corpuscular Volume 87.7 fL (83.0-100.0); Mean Platelet Volume 9.2 fL (9.4-12.4); Monocytes # 0.7 K/mcL (0.0-1.3); Monocytes % 8.9 %; Neutrophils # 6.3 K/mcL (1.6-8.9); Platelet Count 344 K/mcL (140-400); Red Blood Count 4.78 M/mcL (3.82-4.97); Red Cell Distribution Width 14.9 % (11.5-14.5); Segmented Neutrophils % 79.1 %
[2020-01-03 10:33] LABS: BUN/Creatinine Ratio 41 (6-26); Blood Urea Nitrogen 34 mg/dL (6-20); Calcium 9.4 mg/dL (8.6-10.3); Carbon Dioxide 28 mEq/L (23-29); Chloride 100 mEq/L (98-107); Glucose 272 mg/dL (70-105); Magnesium 2.1 mg/dL (1.6-2.6); Osmolality,Calculated 297 (280-300); Phosphorous 3.8 mg/dL (2.7-4.5); Potassium 5.1 mEq/L (3.5-5.1); Sodium 135 mEq/L (136-145); eGFR For African Americans > 60 (> 60); eGFR For Non-African Americans > 60 (> 60)
[2020-01-03 16:50] LABS: C-Reactive Protein 15 mg/L (Less than 10)
[2020-01-03] MEDS ORDERED: MethylPREDNISolone 40 MG/ML VIAL IVP SCH (18:11)
[2020-01-03] MEDS: Azithromycin 500 MG in 0.9 % Sodium Chloride 250 ML IVPB SCH (19:30)
[2020-01-03] MEDS: Insulin DETEMIR 100 UNIT/ML X5UNITS SQ SCH (21:29)
[2020-01-04 05:36] LABS: Basophils % 0.3 %; Eosinophils # 0.1 K/mcL (0.0-0.6); Eosinophils % 0.9 %; Hematocrit 35.2 % (35.3-44.9); Hemoglobin 10.4 g/dL (11.5-15.4); Immature Granulocytes % 0.1 % (0-4); Lymphocytes # 1.8 K/mcL (0.6-4.6); Lymphocytes % 25.1 %; Mean Corpuscular HGB Conc 29.5 g/dL (31.6-35.5); Mean Corpuscular Hemoglobin 25.7 pg (28.0-33.3); Mean Corpuscular Volume 87.1 fL (83.0-100.0); Mean Platelet Volume 9.2 fL (9.4-12.4); Monocytes # 0.6 K/mcL (0.0-1.3); Monocytes % 8.5 %; Platelet Count 330 K/mcL (140-400); Red Blood Count 4.04 M/mcL (3.82-4.97); Segmented Neutrophils % 65.1 %
[2020-01-04 05:50] LABS: BUN/Creatinine Ratio 62 (6-26); Blood Urea Nitrogen 37 mg/dL (6-20); Calcium 8.6 mg/dL (8.6-10.3); Carbon Dioxide 31 mEq/L (23-29); Chloride 104 mEq/L (98-107); Glucose 170 mg/dL (70-105); Osmolality,Calculated 301 (280-300); Potassium 4.9 mEq/L (3.5-5.1); Sodium 139 mEq/L (136-145); eGFR For African Americans > 60 (> 60); eGFR For Non-African Americans > 60 (> 60)
[2020-01-04 05:51] LABS: Neutrophils # 4.6 K/mcL (1.6-8.9)
[2020-01-04 06:09] LABS: Hypochromasia Present (Not Present); Platelet Estimate Normal (Normal)
[2020-01-04 06:47] VITALS: BP 95/53
[2020-01-04] MEDS ORDERED: *HR* Enoxaparin 40 MG/0.4 ML SYRINGE SQ SCH (07:00)
[2020-01-04] MEDS: Budesonide/Formoterol 160/4.5 1 PUFF INH IH SCH (07:28)
[2020-01-04] MEDS ORDERED: Perflutren Lipid Microsphere 1.3 ML in 0.9 % Sodium Chloride 8.7 ML IVP ONE (08:12)
[2020-01-04] MEDS ORDERED: Furosemide 40 MG/4 ML VIAL IVP SCH (09:00)
[2020-01-04] MEDS: Insulin LISPRO 300 UNITS/3 ML VIAL SQ SCH (09:11)
[2020-01-04] MEDS: *HR* Buprenorphine HCl 8 MG TAB.SUBL SL SCH (09:14)
== END 2020-01-04 11:06 | disposition left against medical advice (07) ==
LOC: EMEROOARM 10:59 → 2NENU 10:59 → SUATTDRO 16:00 → 2NENU 16:39 → 3BNU 01-03 20:56
PROVIDERS: ADMIT Family Medicine; ATTEND Pharmacist

== ENCOUNTER 2021-01-09 12:09 | Inpatient (IN) ==
[2021-01-09] MEDS ORDERED: methylPREDNISolone 125 MG/2 ML VIAL IVP ONE (12:40)
[2021-01-09] MEDS ORDERED: Ipratropium/Albuterol Neb 3 ML IH ONE (12:40)
[2021-01-09] MEDS ORDERED: Azithromycin 500 MG in 0.9 % Sodium Chloride 250 ML IVPB ONE (12:43)
[2021-01-09] MEDS ORDERED: cefTRIAXone 1,000 MG in Water for inj. (sterile) 10 ML IVP ONE (12:43)
[2021-01-09] MEDS ORDERED: *HR* FentaNYL (PF) 100 MCG/2 ML VIAL IVP ONE (12:45)
[2021-01-09] MEDS ORDERED: 0.9 % Sodium Chloride 500 ML IVC ONE (13:15)
[2021-01-09 13:46] LABS: Basophils % 0.2 %; Hematocrit 53.8 % (35.3-44.9); Hemoglobin 16.1 g/dL (11.5-15.4); Immature Granulocytes % 0.4 % (0-4); Lymphocytes # 1.3 K/mcL (0.6-4.6); Lymphocytes % 10.1 %; Mean Corpuscular HGB Conc 29.9 g/dL (31.6-35.5); Mean Corpuscular Hemoglobin 25.6 pg (28.0-33.3); Mean Corpuscular Volume 85.5 fL (83.0-100.0); Mean Platelet Volume 9.8 fL (9.4-12.4); Monocytes % 7.7 %; Neutrophils # 10.2 K/mcL (1.6-8.9); Platelet Count 262 K/mcL (140-400); Red Blood Count 6.29 M/mcL (3.82-4.97); Segmented Neutrophils % 81.6 %; White Blood Count 12.5 K/mcL (4.3-11.1)
[2021-01-09 14:08] LABS: BUN/Creatinine Ratio 34 (6-26); Blood Urea Nitrogen 23 mg/dL (6-20); Calcium 10.3 mg/dL (8.6-10.3); Carbon Dioxide 30 mEq/L (23-29); Chloride 97 mEq/L (98-107); Glucose 160 mg/dL (70-105); Osmolality,Calculated 287 (280-300); Potassium 4.7 mEq/L (3.5-5.1); Sodium 135 mEq/L (136-145); eGFR For African Americans > 60 (> 60); eGFR For Non-African Americans > 60 (> 60)
[2021-01-09 14:16] LABS: Adenovirus Not Detected (Not Detect); Bordetella Pertussis Not Detected (Not Detect); Chlamydophila pneumoniae Not Detected (Not Detect); Coronavirus 229E Not Detected (Not Detect); Coronavirus HKU1 Not Detected (Not Detect); Coronavirus NL63 Not Detected (Not Detect); Coronavirus OC43 Not Detected (Not Detect); Human Metapneumovirus Not Detected (Not Detect); Human Rhinovirus/Enterovirus DETECTED (Not Detect); Influenza A Subtype 2009 H1 Not Detected (Not Detect); Influenza B Not Detected (Not Detect); Mycoplasma pneumoniae Not Detected (Not Detect); Parainfluenza Virus 1 Not Detected (Not Detect); Parainfluenza Virus 2 Not Detected (Not Detect); Parainfluenza Virus 3 Not Detected (Not Detect); Parainfluenza Virus 4 Not Detected (Not Detect); Respiratory Syncytial Virus Not Detected (Not Detect); SARS-CoV-2 Not Detected (Not Detect)
[2021-01-09] MEDS ORDERED: *HR* Heparin 5,000 UNIT/ML VIAL IVP ONE (15:13)
[2021-01-09] MEDS ORDERED: *HR* Heparin 5,000 UNIT/ML VIAL IVP PRN ×2 (15:13)
[2021-01-09] MEDS ORDERED: Heparin 25,000UNIT/250ML 1/2NS 25,000 UNIT/250 ML IV.SOLN IVC SCH (15:15)
[2021-01-09] MEDS ORDERED: Ondansetron 4 MG/2 ML VIAL IVP PRN (15:29)
[2021-01-09] MEDS ORDERED: Naloxone 0.4 MG/ML INJ IVP PRN (15:29)
[2021-01-09] MEDS ORDERED: D5% in Water 1,000 ML IVC PRN (15:34)
[2021-01-09] MEDS ORDERED: *HR* Dextrose 50 % in Water (Vial) 50 ML VIAL IVP PRN (15:34)
[2021-01-09] MEDS ORDERED: Dextrose Gel 15 GM/37.5 ML TUBE PO PRN ×2 (15:34)
[2021-01-09 15:48] LABS: Hematocrit 51.3 % (35.3-44.9); Hemoglobin 15.3 g/dL (11.5-15.4); Mean Corpuscular HGB Conc 29.8 g/dL (31.6-35.5); Mean Corpuscular Hemoglobin 25.5 pg (28.0-33.3); Mean Corpuscular Volume 85.6 fL (83.0-100.0); Mean Platelet Volume 10.2 fL (9.4-12.4); Platelet Count 241 K/mcL (140-400); Red Blood Count 5.99 M/mcL (3.82-4.97); Red Cell Distribution Width 13.9 % (11.5-14.5); White Blood Count 11.7 K/mcL (4.3-11.1)
[2021-01-09 15:53] LABS: Heparin anti-factor XA UFH < 0.04 IU/mL (0.30-0.70)
[2021-01-09 15:54] LABS: INR 1.3; Prothrombin Time 14.5 Seconds (9.4-12.1)
[2021-01-09] MEDS ORDERED: Acetaminophen 325 MG TABLET PO PRN (15:58)
[2021-01-09] MEDS ORDERED: Ringers Solution, Lactated 500 ML IVC SCH (16:00)
[2021-01-09] MEDS ORDERED: Isovue-370 500 ML BOTTLE IVP ONE (16:23)
[2021-01-09 16:35] LABS: Lipase 3 Units/L (11-82)
[2021-01-09] MEDS: Ipratropium/Albuterol Neb 3 ML IH SCH ×3 (17:04→23:42)
[2021-01-09] MEDS: Insulin LISPRO 300 UNITS/3 ML VIAL SUBQ SCH (17:53)
[2021-01-09] MEDS: MethylPREDNISolone 40 MG/ML VIAL IVP SCH (17:53)
[2021-01-09] MEDS ORDERED: MethylPREDNISolone 40 MG/ML VIAL IVP SCH (18:00)
[2021-01-09] MEDS: 0.9 % Sodium Chloride 500 ML IVC SCH (18:50)
[2021-01-09] MEDS: *HR* OxyCODONE/APAP 5/325 TABLET PO PRN (18:51)
[2021-01-09] MEDS ORDERED: Sennosides/Docusate Sodium TABLET PO PRN (18:54)
[2021-01-09] MEDS ORDERED: Insulin DETEMIR 100 UNIT/ML X5UNITS SUBQ SCH (21:00)
[2021-01-10] MEDS: MethylPREDNISolone 40 MG/ML VIAL IVP SCH ×3 (00:05→18:45)
[2021-01-10 01:24] LABS: Basophils % 0.1 %; Hematocrit 50.3 % (35.3-44.9); Immature Granulocytes % 0.5 % (0-4); Lymphocytes # 0.4 K/mcL (0.6-4.6); Lymphocytes % 4.9 %; Mean Corpuscular HGB Conc 29.8 g/dL (31.6-35.5); Mean Corpuscular Hemoglobin 25.5 pg (28.0-33.3); Mean Corpuscular Volume 85.4 fL (83.0-100.0); Mean Platelet Volume 10.2 fL (9.4-12.4); Monocytes # 0.1 K/mcL (0.0-1.3); Neutrophils # 8.3 K/mcL (1.6-8.9); Platelet Count 235 K/mcL (140-400); Red Blood Count 5.89 M/mcL (3.82-4.97); Red Cell Distribution Width 13.9 % (11.5-14.5); Segmented Neutrophils % 93.5 %; White Blood Count 8.8 K/mcL (4.3-11.1)
[2021-01-10] MEDS: 0.9 % Sodium Chloride 500 ML IVC SCH ×2 (01:42→08:23)
[2021-01-10 01:47] LABS: BUN/Creatinine Ratio 35 (6-26); Blood Urea Nitrogen 25 mg/dL (6-20); Calcium 8.9 mg/dL (8.6-10.3); Carbon Dioxide 28 mEq/L (23-29); Chloride 99 mEq/L (98-107); Chol/HDL Ratio 3.7 (0-4.9); Cholesterol 125 mg/dL (< 200); Glucose 297 mg/dL (70-105); HDL Cholesterol 34 mg/dL (40-59); LDL Cholesterol,Calculated 75 mg/dL (< 100); Magnesium 1.8 mg/dL (1.6-2.6); Osmolality,Calculated 295 (280-300); Phosphorous 3.2 mg/dL (2.7-4.5); Potassium 4.6 mEq/L (3.5-5.1); Sodium 135 mEq/L (136-145); Triglycerides 81 mg/dL (< 150); eGFR For African Americans > 60 (> 60); eGFR For Non-African Americans > 60 (> 60)
[2021-01-10] MEDS: *HR* OxyCODONE/APAP 5/325 TABLET PO PRN ×4 (03:45→22:26)
[2021-01-10] MEDS: Ipratropium/Albuterol Neb 3 ML IH SCH ×5 (03:48→20:34)
[2021-01-10] MEDS ORDERED: Perflutren Lipid Microsphere 1.3 ML in 0.9 % Sodium Chloride 8.7 ML IVP PRN (08:16)
[2021-01-10] MEDS: Insulin LISPRO 300 UNITS/3 ML VIAL SUBQ SCH ×4 (08:25→18:48)
[2021-01-10] MEDS: cefTRIAXone 1,000 MG in Water for inj. (sterile) 10 ML IVP SCH (08:26)
[2021-01-10] MEDS: Insulin DETEMIR 100 UNIT/ML X5UNITS SUBQ SCH ×3 (08:26→21:36)
[2021-01-10] MEDS: lisinopriL 20 MG TABLET PO SCH (08:27)
[2021-01-10] MEDS: Aspirin Enteric Coated 81 MG Tablet PO SCH (13:24)
[2021-01-10] MEDS: Metoprolol XL (24 HR) Succ 25 MG TAB.ER.24H PO SCH (13:24)
[2021-01-10] MEDS: Azithromycin 250 MG TABLET PO SCH (13:24)
[2021-01-10] MEDS: *HR* Buprenorphine HCl 8 MG TAB.SUBL SL SCH (13:24)
[2021-01-10] MEDS: *HR* Heparin 5,000 UNIT/ML VIAL SQ SCH (18:46)
[2021-01-11] MEDS: Ipratropium/Albuterol Neb 3 ML IH SCH ×5 (00:10→14:34)
[2021-01-11] MEDS: *HR* OxyCODONE/APAP 5/325 TABLET PO PRN ×2 (05:31→13:18)
[2021-01-11] MEDS: *HR* Heparin 5,000 UNIT/ML VIAL SQ SCH (05:31)
[2021-01-11] MEDS: MethylPREDNISolone 40 MG/ML VIAL IVP SCH (05:32)
[2021-01-11] MEDS: Insulin DETEMIR 100 UNIT/ML X5UNITS SUBQ SCH (08:27)
[2021-01-11] MEDS: *HR* Buprenorphine HCl 8 MG TAB.SUBL SL SCH (08:27)
[2021-01-11] MEDS: Aspirin Enteric Coated 81 MG Tablet PO SCH (08:27)
[2021-01-11] MEDS: Azithromycin 250 MG TABLET PO SCH (08:27)
[2021-01-11] MEDS: lisinopriL 20 MG TABLET PO SCH (08:27)
[2021-01-11] MEDS: Metoprolol XL (24 HR) Succ 25 MG TAB.ER.24H PO SCH (08:27)
[2021-01-11] MEDS: cefTRIAXone 1,000 MG in Water for inj. (sterile) 10 ML IVP SCH (08:28)
[2021-01-11] MEDS: Insulin LISPRO 300 UNITS/3 ML VIAL SUBQ SCH ×4 (08:28→11:46)
[2021-01-11 11:37] VITALS: BP 145/71
== END 2021-01-11 15:00 | disposition home or self-care (01) | DRG 193 ==
LOC: EMEROOARM 12:09 → 2ANU 12:09
PROVIDERS: ADMIT Internal Medicine; ATTEND Internal Medicine

== ENCOUNTER 2021-12-15 17:04 | Observation (INO) ==
[2021-12-15] MEDS ORDERED: Azithromycin 500 MG in 0.9 % Sodium Chloride 250 ML IVPB ONE (17:16)
[2021-12-15] MEDS ORDERED: cefTRIAXone 1,000 MG in 0.9 % Sodium Chloride 10 ML IVP ONE (17:16)
[2021-12-15] MEDS ORDERED: methylPREDNISolone 125 MG/2 ML VIAL IVP ONE (17:18)
[2021-12-15] MEDS ORDERED: Ipratropium/Albuterol Neb 3 ML IH ONE (17:18)
[2021-12-15 17:42] LABS: Basophils # 0.1 K/mcL (0.0-0.2); Basophils % 0.3 %; Eosinophils # 0.1 K/mcL (0.0-0.6); Eosinophils % 0.3 %; Hemoglobin 18.8 g/dL (11.5-15.4); Immature Granulocytes % 0.4 % (0-4); Lymphocytes # 1.3 K/mcL (0.6-4.6); Lymphocytes % 7.9 %; Mean Corpuscular HGB Conc 31.7 g/dL (31.6-35.5); Mean Corpuscular Hemoglobin 27.2 pg (28.0-33.3); Mean Corpuscular Volume 85.7 fL (83.0-100.0); Mean Platelet Volume 9.9 fL (9.4-12.4); Monocytes # 1.5 K/mcL (0.0-1.3); Monocytes % 9.1 %; Neutrophils # 13.4 K/mcL (1.6-8.9); Platelet Count 240 K/mcL (140-400); Red Blood Count 6.92 M/mcL (3.82-4.97); White Blood Count 16.4 K/mcL (4.3-11.1)
[2021-12-15 17:43] LABS: Hematocrit 59.3 % (35.3-44.9)
[2021-12-15 18:41] LABS: Influenza A PCR Negative (Negative); Influenza B PCR Negative (Negative); Resp. Syncytial Virus PCR Negative (Negative); SARS-CoV-2 by PCR (In House) Negative (Negative)
[2021-12-15] MEDS ORDERED: 0.9 % Sodium Chloride 1,000 ML IVC SCH ×2 (18:45→23:15)
[2021-12-15 18:50] LABS: INR 1.1; Prothrombin Time 12.6 Seconds (9.4-12.1)
[2021-12-15 18:53] LABS: Activated Partial Thrombo Time 30.9 Seconds (26.0-36.0)
[2021-12-15 19:18] LABS: Troponin I 0.38 ng/mL (< 0.04)
[2021-12-15 19:42] LABS: Alanine Aminotransferase 3 Units/L (7-52); Albumin 3.7 g/dL (3.5-5.7); Alkaline Phosphatase 65 Units/L (34-104); Aspartate Amino Transferase 15 Units/L (13-39); BUN/Creatinine Ratio 42 (6-26); Bilirubin,Indirect 0.4 mg/dL (0.0-1.0); Bilirubin,Total 0.4 mg/dL (0.3-1.0); Blood Urea Nitrogen 32 mg/dL (6-20); Calcium 9.8 mg/dL (8.6-10.3); Carbon Dioxide 22 mEq/L (23-29); Chloride 99 mEq/L (98-107); Creatine Kinase 52 Units/L (30-223); Globulin 3.8 g/dL (2.4-3.5); Glucose 157 mg/dL (70-105); Osmolality,Calculated 290 (280-300); Potassium 5.4 mEq/L (3.5-5.1); Sodium 135 mEq/L (136-145); Total Protein 7.5 g/dL (6.4-8.9); eGFR For African Americans > 60 (> 60); eGFR For Non-African Americans > 60 (> 60)
[2021-12-15] MEDS ORDERED: *HR* Buprenorphine HCl 8 MG TAB.SUBL SL ONE (19:52)
[2021-12-15] MEDS ORDERED: Aspirin 81 MG TAB.CHEW PO STA (20:20)
[2021-12-15 20:34] LABS: Bilirubin,Urine Negative (Negative); Blood,Urine Moderate (Negative); Clarity,Urine Clear (Clear); Color,Urine Light-Yellow (Yellow); Glucose,Urine (UA) 30 mg/dL (Normal); Hyaline Casts,Urine Many per lpf (None Seen); Ketones,Urine 20 mg/dL (Negative); Leukocyte Esterase,Urine Negative (Negative); Mucus,Urine Few per lpf (None-Few); Nitrite,Urine Negative (Negative); Protein,Urine >=300 mg/dL (Neg-Trace); Specific Gravity,Urine 1.025 (1.010-1.025); Squamous Epithelial Cell,Urine Few per hpf (None-Few); Urobilinogen,Urine Normal (Normal)
[2021-12-15] MEDS ORDERED: Naloxone 0.4 MG/ML INJ IVP PRN (21:01)
[2021-12-15] MEDS ORDERED: Melatonin 3 MG TABLET PO PRN (21:01)
[2021-12-15] MEDS ORDERED: *HR* Heparin 5,000 UNIT/ML VIAL IVP PRN (21:09)
[2021-12-15] MEDS ORDERED: *HR* Heparin 5,000 UNIT/ML VIAL IVP ONE (21:09)
[2021-12-15] MEDS ORDERED: *HR* Dextrose 50 % in Water (Syg) 50 ML SYRINGE IVP PRN (21:11)
[2021-12-15] MEDS ORDERED: D5% in Water 1,000 ML IVC PRN (21:11)
[2021-12-15] MEDS ORDERED: Dextrose 4 GM Chewable Tablets PO PRN ×2 (21:11)
[2021-12-15] MEDS: Heparin 25,000UNIT/250ML 1/2NS 25,000 UNIT/250 ML IV.SOLN IVC SCH (22:50)
[2021-12-15] MEDS ORDERED: Perflutren Lipid Microsphere 1.3 ML in 0.9 % Sodium Chloride 8.7 ML IVP PRN (23:36)
[2021-12-16 03:18] LABS: Basophils % 0.2 %; Hematocrit 53.3 % (35.3-44.9); Immature Granulocytes % 0.4 % (0-4); Lymphocytes # 0.4 K/mcL (0.6-4.6); Lymphocytes % 4.2 %; Mean Corpuscular HGB Conc 31.1 g/dL (31.6-35.5); Mean Corpuscular Hemoglobin 26.8 pg (28.0-33.3); Mean Platelet Volume 10.2 fL (9.4-12.4); Monocytes # 0.2 K/mcL (0.0-1.3); Monocytes % 1.7 %; Neutrophils # 9.7 K/mcL (1.6-8.9); Platelet Count 185 K/mcL (140-400); Red Cell Distribution Width 15.4 % (11.5-14.5); Segmented Neutrophils % 93.5 %; White Blood Count 10.3 K/mcL (4.3-11.1)
[2021-12-16 03:23] LABS: Hemoglobin 16.6 g/dL (11.5-15.4)
[2021-12-16 03:40] LABS: Estimated Average Glucose 189 mg/dl; Hemoglobin A1C 8.2 %
[2021-12-16 04:04] LABS: Alanine Aminotransferase < 3 Units/L (7-52); Albumin 3.6 g/dL (3.5-5.7); Alkaline Phosphatase 62 Units/L (34-104); Aspartate Amino Transferase 14 Units/L (13-39); BUN/Creatinine Ratio 41 (6-26); Bilirubin,Total 0.3 mg/dL (0.3-1.0); Blood Urea Nitrogen 35 mg/dL (6-20); Calcium 9.3 mg/dL (8.6-10.3); Carbon Dioxide 26 mEq/L (23-29); Chloride 97 mEq/L (98-107); Globulin 3.7 g/dL (2.4-3.5); Glucose 457 mg/dL (70-105); Magnesium 1.9 mg/dL (1.6-2.6); Osmolality,Calculated 302 (280-300); Phosphorous 4.8 mg/dL (2.7-4.5); Potassium 5.5 mEq/L (3.5-5.1); Sodium 132 mEq/L (136-145); Total Protein 7.3 g/dL (6.4-8.9); eGFR For African Americans > 60 (> 60); eGFR For Non-African Americans > 60 (> 60)
[2021-12-16] MEDS: Ipratropium/Albuterol Neb 3 ML IH SCH ×4 (04:31→20:36)
[2021-12-16] MEDS ORDERED: SODIUM ZIRCONIUM CYCLOSILICATE 5 GM POWD.PACK PO ONE ×2 (04:35→09:25)
[2021-12-16] MEDS ORDERED: Insulin Human Regular 10 UNIT in 0.9 % Sodium Chloride 10 ML IV ONE (04:36)
[2021-12-16] MEDS: *HR* Heparin 5,000 UNIT/ML VIAL IVP PRN ×3 (04:46→22:06)
[2021-12-16] MEDS ORDERED: Insulin LISPRO 300 UNITS/3 ML VIAL SUBQ SCH ×2 (07:30→21:00)
[2021-12-16] MEDS: Budesonide/Formoterol 160/4.5 1 PUFF INH IH SCH ×2 (07:55→20:37)
[2021-12-16] MEDS: MethylPREDNISolone 40 MG/ML VIAL IVP SCH ×2 (08:45→17:06)
[2021-12-16] MEDS: Aspirin 81 MG TAB.CHEW PO SCH (08:45)
[2021-12-16] MEDS: *HR* Buprenorphine HCl 8 MG TAB.SUBL SL SCH (08:45)
[2021-12-16] MEDS: Insulin DETEMIR 100 UNIT/ML X5UNITS SUBQ SCH ×2 (08:46→22:15)
[2021-12-16] MEDS: Insulin LISPRO 300 UNITS/3 ML VIAL SUBQ SCH ×3 (08:46→16:15)
[2021-12-16 23:55] LABS: Adenovirus Not Detected (Not Detect); Coronavirus 229E Not Detected (Not Detect); Coronavirus HKU1 Not Detected (Not Detect); Coronavirus NL63 Not Detected (Not Detect); Coronavirus OC43 Not Detected (Not Detect); Human Metapneumovirus Not Detected (Not Detect); SARS-CoV-2 Not Detected (Not Detect)
[2021-12-16 23:56] LABS: Bordetella Pertussis Not Detected (Not Detect); Chlamydophila pneumoniae Not Detected (Not Detect); Human Rhinovirus/Enterovirus Not Detected (Not Detect); Influenza A Subtype 2009 H1 Not Detected (Not Detect); Influenza B Not Detected (Not Detect); Mycoplasma pneumoniae Not Detected (Not Detect); Parainfluenza Virus 1 Not Detected (Not Detect); Parainfluenza Virus 2 Not Detected (Not Detect); Parainfluenza Virus 3 Not Detected (Not Detect); Parainfluenza Virus 4 Not Detected (Not Detect); Respiratory Syncytial Virus Not Detected (Not Detect)
[2021-12-17] MEDS: MethylPREDNISolone 40 MG/ML VIAL IVP SCH ×2 (00:42→08:26)
[2021-12-17] MEDS: Heparin 25,000UNIT/250ML 1/2NS 25,000 UNIT/250 ML IV.SOLN IVC SCH (03:43)
[2021-12-17] MEDS: Ipratropium/Albuterol Neb 3 ML IH SCH ×2 (03:49→10:44)
[2021-12-17 06:32] LABS: Hematocrit 47.1 % (35.3-44.9); Mean Corpuscular HGB Conc 31.8 g/dL (31.6-35.5); Mean Corpuscular Hemoglobin 27.2 pg (28.0-33.3); Mean Corpuscular Volume 85.5 fL (83.0-100.0); Mean Platelet Volume 10.5 fL (9.4-12.4); Platelet Count 196 K/mcL (140-400); Red Blood Count 5.51 M/mcL (3.82-4.97); Red Cell Distribution Width 15.1 % (11.5-14.5); White Blood Count 11.3 K/mcL (4.3-11.1)
[2021-12-17 06:54] LABS: BUN/Creatinine Ratio 62 (6-26); Blood Urea Nitrogen 36 mg/dL (6-20); Calcium 9.1 mg/dL (8.6-10.3); Carbon Dioxide 30 mEq/L (23-29); Chloride 103 mEq/L (98-107); Glucose 232 mg/dL (70-105); Osmolality,Calculated 296 (280-300); Potassium 5.7 mEq/L (3.5-5.1); Sodium 135 mEq/L (136-145); eGFR For African Americans > 60 (> 60); eGFR For Non-African Americans > 60 (> 60)
[2021-12-17] MEDS: *HR* Heparin 5,000 UNIT/ML VIAL IVP PRN (06:55)
[2021-12-17 07:07] VITALS: TEMP 98
[2021-12-17] MEDS: Insulin LISPRO 300 UNITS/3 ML VIAL SUBQ SCH ×2 (08:25→11:42)
[2021-12-17] MEDS: Aspirin 81 MG TAB.CHEW PO SCH (08:25)
[2021-12-17] MEDS: *HR* Buprenorphine HCl 8 MG TAB.SUBL SL SCH (08:25)
[2021-12-17] MEDS: Insulin DETEMIR 100 UNIT/ML X5UNITS SUBQ SCH (08:25)
[2021-12-17] MEDS ORDERED: SODIUM ZIRCONIUM CYCLOSILICATE 5 GM POWD.PACK PO SCH (09:00)
[2021-12-17] MEDS ORDERED: amLODIPine 5 MG TABLET PO SCH (09:00)
[2021-12-17] MEDS: Budesonide/Formoterol 160/4.5 1 PUFF INH IH SCH (10:44)
[2021-12-17 11:14] VITALS: BP 157/72; PULSE 81; O2SAT 95
[2021-12-17 11:34] LABS: Troponin I 0.19 ng/mL (< 0.04)
== END 2021-12-17 13:21 | disposition home or self-care (01) ==
LOC: EMEROOARM 17:04 → 2ANU 17:04
PROVIDERS: ADMIT Internal Medicine; ATTEND Internal Medicine